=== PATIENT | male | born 1965 | race Caucasian/White ===

== ENCOUNTER 2017-03-02 20:41 | Emergency (ER) | payer OTHER ==
[~2017-03-02] VITALS: Ht 172.7 cm; Wt 76.0 kg
[~2017-03-02 20:41] MED LIST: Z.0.NO CURRENT MEDS
[2017-03-02 20:42] VITALS: BP 135/80; PULSE 100; RESP 16; TEMP 98.2; O2SAT 97
[2017-03-02] MEDS ORDERED: ROBA750T PO (21:59)
[2017-03-02] MEDS ORDERED: PRED-503 PO (21:59)
[2017-03-02] MEDS ORDERED: ULTR50TA5 PO (21:59)
[2017-03-02] MEDS ORDERED: DEXAMETHASONE SOD PHOS 20 MG/5 ML VIAL IM ONE (22:00)
[2017-03-02] MEDS ORDERED: NALBUPHINE HCL 20 MG/ML AMP IM ONE (22:00)
[2017-03-02] MEDS ORDERED: ORPHENADRINE INJ 60 MG/2 ML AMP IM ONE (22:00)
--- NOTE | 2017-03-02 22:03 | PD ---
HPI Chief Complaint: Back/ Neck Pain or Injury Time Seen by Provider: 21:59 Travel History International Travel<30 days: No Contact w/Intl Traveler<30days: No Traveled to known affect area: No History of Present Illness HPI 52-year-old white male presents to emergency department with complains of exacerbation of chronic back pain. He states that he just came down to move in with [place] sister this [place]. He states that he has chronic back pain. Over last 2 days he has had worsening pain with radiation into his left leg. This is something that he is had an the past. He states that he has tingling and decreased sensation in his heel and the back of his calf. He had a L4-5 lumbar discectomy in the past. He is disabled with chronic back pain and bipolar. He denies any trauma. He denies any bending or lifting. He denies any recent illness. Pain is moderate. Worse with bending and movement. Some relief remaining still. He denies any acute bowel or bladder changes. PFSH Past Medical History Narrative Medical Chronic back pain, bipolar, hypertension Arthritis: No Asthma: No Autoimmune Disease: No Blood Disorders: No Bipolar Disorder: Yes Anxiety: No Depression: No Heart Rhythm Problems: No Cancer: No Cardiac Catheterization: Yes Cardiovascular Problems: Yes (CAD, HTN) High Cholesterol: No Chemotherapy: No Chest Pain: Yes Congestive Heart Failure: No COPD: No Cerebrovascular Accident: No Diabetes: No Diminished Hearing: No Endocrine: No Gastrointestinal Disorders: No GERD: No Glaucoma: No Genitourinary: No Headaches: No Hepatitis: Yes (HEP C) Hiatal Hernia: No Heparin Induced Thrombocytopen: No Hypertension: No Immune Disorder: No Implanted Vascular Access Dvce: No Kidney Stones: No Musculoskeletal: No Neurologic: No Psychiatric: No Reproductive: No Respiratory: No Immunizations Current: Yes Migraines: No Myocardial Infarction: Yes Radiation Therapy: No Renal Failure: No Seizures: No Sickle Cell Disease: No Sleep Apnea: No Thyroid Disease: No Ulcer: No Tetanus Vaccination: > 5 Years Influenza Vaccination: No Past Surgical History Abdominal Surgery: No AICD: No Appendectomy: No Arteriovenous Shunt: No Cardiac Surgery: No Cholecystectomy: No Coronary Artery Bypass Graft: No Ear Surgery: No Endocrine Surgery: No Eye Surgery: No Genitourinary Surgery: No Gynecologic Surgery: No Insulin Pump: No Joint Replacement: No Neurologic Surgery: No Oral Surgery: No Pacemaker: No Thoracic Surgery: No Other Surgery: No Family History Family Myocardial Infarction: Yes (MOM) Social History Alcohol Use: No Tobacco Use: No Substance Use: No Allergies-Medications (Allergen,Severity, Reaction): Coded Allergies: Acetaminophen (Verified Allergy, Severe, HIVES, 03/02/17) Aspirin (Verified Allergy, Severe, HIVES, 03/02/17) Vicodin (Verified Allergy, Severe, HIVES, 03/02/17) Reported Meds & Prescriptions Reported Meds & Active Scripts Active Ultram (Tramadol HCl) 50 Mg Tab 50-100 Mg PO Q6H PRN Robaxin (Methocarbamol) 750 Mg Tab 1,500 Mg PO TID 7 Days Deltasone (Prednisone) 20 Mg Tab 20 Mg PO BID Review of Systems Except as stated in HPI: all other systems reviewed are Neg Physical Exam Narrative GENERAL: This is a well-nourished, well-developed patient, in no apparent distress. SKIN: No rashes, ecchymoses or lesions. Warm and dry. HEAD: Atraumatic. Normocephalic. EYES: PERRL, EOMI, no discharge or injection. No scleral icterus. EARS: Clear NOSE: Nasal turbinates appear normal. THROAT: Mucosa pink and moist. Airway patent. NECK: Trachea midline. supple, moves head freely. LUNGS: Clear to auscultation. CV: Regular in rhythm. ABDOMEN: Soft nontender. EXT: No clubbing cyanosis or edema. Back: Patient complains of lower lumbar tenderness across the paraspinal muscles into the left buttocks. Positive straight leg raise on the left at 70 . Patient has intact gross sensation but states that the sensation in his left calf does not feel right. He has no saddle anesthesia. Patient is able to heel and toe stand with encouragement. Mild spasm. No focal point bony tenderness in the lumbar spine. Data Data Last Documented VS Vital Signs Date Time Temp Pulse Resp B/P Pulse Ox O2 Delivery O2 Flow Rate FiO2 03/02/17 20:42 98.2 100 16 135/80 97 Room Air Orders Dexamethasone Inj (Decadron Inj) (03/02/17 22:00) Orphenadrine Inj (Norflex Inj) (03/02/17 22:00) Nalbuphine Inj (Nubain Inj) (03/02/17 22:00) MDM Medical Decision Making Medical Screen Exam Complete: Yes Emergency Medical Condition: Yes Medical Record Reviewed: Yes Differential Diagnosis MDM: High Differential diagnoses: AAA,Fracture, sprain, strain, HNP, nerve or vascular injury, epidural abscess, pilonidal cyst, pyelonephritis, UTI, nephrolithiasis, ureterolithiasis Narrative Course This is acute exacerbation of chronic back pain with sciatica. Patient has allergies to aspirin, acetaminophen and Vicodin. The patient will be given Nubain 10 mg IM, echo drawn 10 mg IM, and Norflex 60 mg IM Diagnosis Primary Impression: acute exacerbation of chronic back pain with sciatica Patient Instructions: Narcotic given in the ED, General Instructions Additional Instructions: Rest. Ice for the next 3 days followed by heat . Ultram, Robaxin, and prednisone. Follow-up with a primary care doctor in one week. Return to the ER for emergencies. Med/Other Pt SpecificInfo: Prescription(s) given Scripts Tramadol (Ultram)50 Mg [id number] Mg PO Q6H PRN (PAIN) #20 TAB Prov:Fitz Hdz MD 03/02/17 Methocarbamol (Robaxin)750 Mg Tab1,500 Mg PO TID 7 Days Prov:Fitz Hdz MD 03/02/17 Prednisone (Deltasone)20 Mg Tab20 Mg PO BID #14 TAB Prov:Fitz Hdz MD 03/02/17 Disposition: 01 DISCHARGE HOME Condition: Stable Cy Jaeger March 02, 2017 22:03
== END 2017-03-02 23:41 | disposition home or self-care (01) ==
LOC: NEPD 20:41
DX: M54.32 Sciatica, left side (principal); G89.29 Other chronic pain
CPT/HCPCS: 96372; 99283; J1100; J2300; J2360

== ENCOUNTER 2017-03-16 17:10 | Observation (INO) | payer OTHER ==
[2017-03-16] VITALS (7 sets, daily range): BP systolic 119–167; BP diastolic 74–92; PULSE 57–91; RESP 18–21; TEMP 97.8–98.8; O2SAT 97–100
[~2017-03-16] VITALS: Ht 172.7 cm; Wt 70.0 kg
[~2017-03-16 17:10] MED LIST changes: +PRED-503 PO; +ROBA750T PO; +ULTR50TA5 PO; -Z.0.NO CURRENT MEDS
[2017-03-16] MEDS ORDERED: ASPI1TAB69 PO (17:31)
[2017-03-16] MEDS ORDERED: SERO100T PO (17:31)
[2017-03-16] MEDS ORDERED: SODIUM CHLORIDE 0.9% FLUSH 10 ML FLUSH IVF PRN (17:45)
[2017-03-16] MEDS ORDERED: NITROGLYCERIN 2% OINT 1 GM PACKET TOP ONE (17:45)
[2017-03-16] MEDS ORDERED: ASPIRIN 81 MG CHEW TAB PO ONE (17:45)
--- NOTE | 2017-03-16 17:47 | PD ---
HPI Chief Complaint: Chest Pain Time Seen by Provider: 17:43 Travel History International Travel<30 days: No Contact w/Intl Traveler<30days: No Traveled to known affect area: No History of Present Illness HPI Patient comes in complaining of left-sided chest pain describes as pressure- like in nature began approximately 2 hours prior to arrival. Patient states this feels similar to previous chest pain that he has had. Patient states that he does take a baby aspirin daily took that today. Patient tried taking 3 doses of nitroglycerin with no improvement of his symptoms. Patient reports that a month ago when he had similar chest pain nitroglycerin relieved his symptoms. Patient states he just recently moved from [place] about a month ago via [facility] and does not have a member service specialist here locally. Patient states he was watching a Gio movie when the chest pain started. Patient reports his last stress test was several years ago and his last cardiac catheter was more than 10 years ago. Patient states he has had a heart attack in the past as well as a history of hepatitis C. Patient denies anything making the pain worse. Denies any headache, numbness tingling or callback pain , diaphoresis, nausea, vomiting, or neck pain. Patient states that he is uncertain why they have him being allergic to acetaminophen and Vicodin as he has no known drug allergies. PFSH Past Medical History Hx Anticoagulant Therapy: Yes Arthritis: No Asthma: No Autoimmune Disease: No Blood Disorders: No Bipolar Disorder: Yes Anxiety: No Depression: No Heart Rhythm Problems: No Cancer: No Cardiac Catheterization: Yes Cardiovascular Problems: Yes High Cholesterol: No Chemotherapy: No Chest Pain: Yes Congestive Heart Failure: No COPD: No Cerebrovascular Accident: No Diabetes: No Diminished Hearing: No Endocrine: No Gastrointestinal Disorders: No GERD: No Glaucoma: No Genitourinary: No Headaches: No Hepatitis: Yes (HEP C) Hiatal Hernia: No Heparin Induced Thrombocytopen: No Hypertension: No Immune Disorder: No Implanted Vascular Access Dvce: No Kidney Stones: No Musculoskeletal: No Neurologic: No Psychiatric: No Reproductive: No Respiratory: No Immunizations Current: Yes Migraines: No Myocardial Infarction: Yes Radiation Therapy: No Renal Failure: No Seizures: No Sickle Cell Disease: No Sleep Apnea: No Thyroid Disease: No Ulcer: No Tetanus Vaccination: < 5 Years Influenza Vaccination: No Past Surgical History Abdominal Surgery: No AICD: No Appendectomy: No Arteriovenous Shunt: No Cardiac Surgery: No Cholecystectomy: No Coronary Artery Bypass Graft: No Ear Surgery: No Endocrine Surgery: No Eye Surgery: No Genitourinary Surgery: No Gynecologic Surgery: No Insulin Pump: No Joint Replacement: No Neurologic Surgery: No Oral Surgery: No Pacemaker: No Thoracic Surgery: No Other Surgery: No Family History Family Myocardial Infarction: Yes (MOM) Social History Alcohol Use: No Tobacco Use: Yes Substance Use: No Allergies-Medications (Allergen,Severity, Reaction): Coded Allergies: Acetaminophen (Verified Allergy, Severe, HIVES, 03/16/17) Vicodin (Verified Allergy, Severe, HIVES, 03/16/17) Reported Meds & Prescriptions Reported Meds & Active Scripts Active Reported Seroquel (Quetiapine Fumarate) 100 Mg Tab 100 Mg PO DAILY Aspirin 81 Mg Tabdr 81 Mg PO DAILY Review of Systems Except as stated in HPI: all other systems reviewed are Neg Physical Exam Narrative GENERAL: Well-developed, well nourished, in no acute distress, and non-ill appearing. SKIN: Focused skin assessment warm and dry. HEAD: Atraumatic. Normocephalic. EYES: Pupils equal and round. EOMI. No scleral icterus. No injection or drainage. ENT: No nasal bleeding or discharge. Mucous membranes pink and moist. NECK: Trachea midline. No JVD. Supple. No nuclear rigidity. CARDIOVASCULAR: Regular rate and rhythm. No murmur appreciated. RESPIRATORY: No accessory muscle use. No respiratory distress. Clear to auscultation. Breath sounds equal bilaterally. GASTROINTESTINAL: Abdomen soft, non-tender, nondistended. Hepatic and splenic margins not palpable. No pulsatile mass. MUSCULOSKELETAL: No obvious deformities. No clubbing. No cyanosis. No edema. Full range of motion. NEUROLOGICAL: Awake and alert. No obvious cranial nerve deficits. Motor grossly within normal limits. Normal speech. PSYCHIATRIC: Appropriate mood and affect; insight and judgment normal. Data Data Last Documented VS Vital Signs Date Time Temp Pulse Resp B/P Pulse Ox O2 Delivery O2 Flow Rate FiO2 03/16/17 19:30 65 21 122/74 97 Room Air 03/16/17 17:21 98.0 Orders Electrocardiogram (03/16/17 ) Basic Metabolic Panel (Bmp) (03/16/17 17:41) Ckmb (Isoenzyme) Profile (03/16/17 17:41) Complete Blood Count With Diff (03/16/17:41) D-Dimer (03/16/17 17:41) Magnesium (Mg) (03/16/17:41) Prothrombin Time / Inr (Pt) (03/16/17:41) Act Partial Throm Time (Ptt) (03/16/17:41) Troponin I (03/16/17:41) Chest, Single Ap (03/16/17:41) Ecg Monitoring (03/16/17:) Bilateral Bp Monitoring (03/16/17:) Iv Access Insert/Monitor (03/16/17:) Oximetry (03/16/17:41) Oxygen Administration (03/16/17:) Aspirin Chew (Aspirin Chew) (03/16/17:45) Nitroglycerin 2% Oint (Nitroglycerin 2% (03/16/17:45) Sodium Chloride 0.9% Flush (Ns Flush) (03/16/17:45) Ondansetron Inj (Zofran Inj) (03/16/17 19:30) Morphine Inj (Morphine Inj) (03/16/17 19:30) CKMB (03/16/17 18:00) CKMB% (03/16/17 18:00) Admit Order (Ed Use Only) (03/16/17:25) Activity Bed Rest With Brp (03/16/17:25) Vital Signs (Adult) Q4H (03/16/17:25) Cardiac Rhythm .As Directed (03/16/17:25) Notify Dr: Other .PRN (03/16/17 19:25) Notify Dr. Parameters (03/16/17:25) Resp Oxygen Nasal Cannula (03/16/17 ) Ckmb (Isoenzyme) Profile (03/16/17 21:00) Ckmb (Isoenzyme) Profile (03/17/17 00:00) Troponin I (03/16/17 21:00) Troponin I (03/17/17 00:00) Electrocardiogram (03/16/17 21:00) Electrocardiogram (03/17/17 00:00) ^ Obtain (03/16/17:25) Sodium Chloride 0.9% Flush (Ns Flush) (5/20/17 19:30) Sodium Chloride 0.9% Flush (Ns Flush) (03/16/17 21:00) Barrel Loader And Cleaner / Telemetry MITCHELL.Q8H (03/16/17 19:25) Labs Laboratory Tests Test 03/16/17 18:00 White Blood Count 9.2 TH/MM3 Red Blood Count 4.85 MIL/MM3 Hemoglobin 15.8 GM/DL Hematocrit 45.8 % Mean Corpuscular Volume 94.5 FL Mean Corpuscular Hemoglobin 32.5 PG Mean Corpuscular Hemoglobin 34.4 % Concent Red Cell Distribution Width 13.4 % Platelet Count 192 TH/MM3 Mean Platelet Volume 8.2 FL Neutrophils (%) (Auto) 65.3 % Lymphocytes (%) (Auto) 23.2 % Monocytes (%) (Auto) 8.3 % Eosinophils (%) (Auto) 2.3 % Basophils (%) (Auto) 0.9 % Neutrophils # (Auto) 6.0 TH/MM3 Lymphocytes # (Auto) 2.1 TH/MM3 Monocytes # (Auto) 0.8 TH/MM3 Eosinophils # (Auto) 0.2 TH/MM3 Basophils # (Auto) 0.1 TH/MM3 CBC Comment DIFF FINAL Differential Comment Prothrombin Time 10.6 SEC Prothromb Time International 1.0 RATIO Ratio Activated Partial 30.3 SEC Thromboplast Time D-Dimer Quantitative (PE/DVT) 0.20 MG/L FEU Sodium Level 140 MEQ/L Potassium Level 3.7 MEQ/L Chloride Level 104 MEQ/L Carbon Dioxide Level 26.5 MEQ/L Anion Gap 10 MEQ/L Blood Urea Nitrogen 17 MG/DL Creatinine 1.07 MG/DL Estimat Glomerular Filtration 73 ML/MIN Rate Random Glucose 82 MG/DL Calcium Level 8.7 MG/DL Magnesium Level 2.1 MG/DL Total Creatine Kinase 154 U/L Troponin I LESS THAN 0.02 NG/ML MDM Medical Decision Making Medical Screen Exam Complete: Yes Emergency Medical Condition: Yes Interpretation(s) EKG reviewed by Dr. Donahue shows sinus rhythm with ventricular rate of 79. No STEMI. Chest x-ray read by the radiologist shows: No acute disease. Differential Diagnosis Acute coronary syndrome, atypical chest pain, PE, pneumonia, electrolyte abnormality, pneumothorax, other Narrative Course Patient was seen and examined. IV was established. 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 Patient was given aspirin and Nitropaste. Labs were obtained and reviewed. EKG is obtained and reviewed. Chest x-ray was obtained and reviewed. Patient reassessed and continuing complaining of chest pain. Patient was given a dose of morphine and Zofran. Discussed all findings and plan of care with patient, who was agreeable for admission. All questions were answered. Patient remained stable throughout ED course. Discussed patient with Dr. Donahue, who saw and evaluated the patient and is in agreement with plan of care disposition. Diagnosis Primary Impression: Chest pain Qualified Code: R07.9 - Chest pain, unspecified type Admitting Information Admitting Physician Requests: Observation Condition: Stable Leo Johnson March 16, 2017 17:47
--- NOTE | 2017-03-16 18:24 | RADRPT ---
EXAM DATE/TIME: 03/16/2017 17:43 [facility] COMPARISON: No previous studies available for comparison. INDICATIONS : Chest pain, shortness of breath, cough, and dizziness. MEDICAL HISTORY : None. SURGICAL HISTORY : None. ENCOUNTER: Initial ACUITY: 1 day PAIN SCORE: 7/10 LOCATION: Left chest FINDINGS: A single view of the chest demonstrates the lungs to be symmetrically aerated without evidence of mas s, infiltrate or effusion. The cardiomediastinal contours are unremarkable. Osseous structures are intact. CONCLUSION: No acute disease. Betito Pickering MD on March 16, 2017 at 18:22 Board Certified Radiologist. This report was verified electronically.
[2017-03-16 18:40] LABS: BASOPHIL # 0.1 TH/MM3 (0-0.2); BASOPHIL % 0.9 % (0.0-2.0); EOSINOPHIL # 0.2 TH/MM3 (0-0.4); EOSINOPHIL % 2.3 % (0.0-4.0); HEMATOCRIT 45.8 % (39.0-51.0); HEMO FLAGS DIFF FINAL; LYMPH % 23.2 % (9.0-44.0); LYMPHOCYTE # 2.1 TH/MM3 (1.0-4.8); MEAN CELL VOLUME 94.5 FL (80.0-100.0); MEAN CORPUSCULAR HEMOGLOBIN 32.5 PG (27.0-34.0); MEAN CORPUSCULAR HGB CONC 34.4 % (32.0-36.0); MONO % 8.3 % (0.0-8.0); NEUT % 65.3 % (16.0-70.0); PLATELET COUNT 192 TH/MM3 (150-450); RED BLOOD COUNT 4.85 MIL/MM3 (4.50-5.90); RED CELL DISTRIBUTION WIDTH 13.4 % (11.6-17.2); WHITE BLOOD COUNT 9.2 TH/MM3 (4.0-11.0)
[2017-03-16 19:01] LABS: APTT (PATIENT) 30.3 SEC (24.3-30.1); PROTHROMBIN TIME - PATIENT 10.6 SEC (9.8-11.6)
[2017-03-16 19:15] LABS: ANION GAP 10 MEQ/L (5-15); BICARBONATE 26.5 MEQ/L (21.0-32.0); BLOOD UREA NITROGEN 17 MG/DL (7-18); CHLORIDE 104 MEQ/L (98-107); GLOMERULAR FILTRATION RATE 73 ML/MIN (>89); MAGNESIUM 2.1 MG/DL (1.5-2.5); POTASSIUM 3.7 MEQ/L (3.5-5.1); SODIUM (NA) 140 MEQ/L (136-145)
[2017-03-16 19:19] LABS: CREATINE KINASE 154 U/L (39-308)
[2017-03-16] MEDS ORDERED: MORPHINE SULFATE 4 MG/ML INJ IV PUSH ONE (19:30)
[2017-03-16] MEDS ORDERED: ONDANSETRON HCL 4 MG/2 ML VIAL IV PUSH ONE (19:30)
[2017-03-16] MEDS ORDERED: SODIUM CHLORIDE 0.9% FLUSH 10 ML FLUSH IV FLUSH PRN (19:30)
[2017-03-16 19:31] LABS: CKMB 4.3 NG/ML (0.5-3.6)
[2017-03-16 22:02] LABS: CREATINE KINASE 122 U/L (39-308)
[2017-03-16 22:14] LABS: CKMB 3.6 NG/ML (0.5-3.6)
[2017-03-16] MEDS: MORPHINE SULFATE 4 MG/ML INJ IV PRN (23:37)
[2017-03-16] MEDS ORDERED: traMADol HCL 50 MG TAB PO PRN (23:45)
[2017-03-17] VITALS (10 sets, daily range): BP systolic 91–116; BP diastolic 50–73; PULSE 54–68; RESP 16–18; TEMP 96.5–98.4; O2SAT 94–99
[2017-03-17] MEDS: SODIUM CHLORIDE 0.9% FLUSH 10 ML FLUSH IV FLUSH SCH ×3 (00:08→20:39)
[2017-03-17 01:07] LABS: CREATINE KINASE 103 U/L (39-308)
[2017-03-17 01:19] LABS: CKMB 2.9 NG/ML (0.5-3.6)
[2017-03-17] MEDS: MORPHINE SULFATE 4 MG/ML INJ IV PRN ×2 (03:05→08:48)
[2017-03-17] MEDS ORDERED: NITROGLYCERIN 0.4 MG SL 25 TABS/BTL SL PRN (08:00)
[2017-03-17] MEDS ORDERED: ONDANSETRON HCL 4 MG/2 ML VIAL IV PRN (08:00)
[2017-03-17] MEDS ORDERED: ASPIRIN 325 MG TAB PO SCH (09:00)
--- NOTE | 2017-03-17 10:20 | HHI.HP ---
HPI Primary Care Physician No Primary Care Physician Chief Complaint Chest pain History of Present Illness 52-year-old male with history of hepatitis C, bipolar, history of coronary artery disease presents to emergency room for further evaluation of chest pain. Onset yesterday of 4 PM. Location substernal. Described as pressure and tightness. No radiation of pain. No known precipitating factors. Took 3 nitroglycerin tablets within 20 minutes timeframe with no relief. His sister encouraged him to come to the emergency room for further evaluation. Associated symptoms included dizziness. Denied nausea, diaphoresis, or vomiting. Pain has been constant, waxing and waning in intensity. Position, movement, or breathing does not make pain better or worse. Endorses cardiac catheterization completed over 10 years ago. Per his record sounds as though he had a non-STEMI, stating "my EKGs were normal but my blood work were elevated." States he took heart Meds and cholesterol medications for "a little while but quit taking them because I felt fine." Review of Systems General: No fatigue,weakness, fever, chills, recent illness, or change in appetite. Recently moved here from [place] and is staying with his sister. States he has been in his general state of health. HEENT: No HURLEY, no vision changes, no nasal congestion or drainage, no dysphasia. CV: As stated above. Continues to have constant waxing and waning chest pressure. Endorses occasional palpitations. Denies intermittent leg pain or dizziness. RESP: No SOB, cough, wheeze, hemoptysis, asthma, or recent URI. GI: No nausea, vomiting, bowel changes, diarrhea, constipation, pain, distention , melena, blood in the stool. No unintentional weight gain or weight loss. Endorses hemorrhoids. : No dysuria, urgency, frequency. EXT: No lower leg edema, no paraesthesias MS: No discomfort or change in ROM. Ambulates independently. NEURO: No change in memory, dizziness, difficulty with balance, LOC, motor/ sensory deficits. PSYCH: History of bipolar disorder, stating he takes his Seroquel "when I need it." Denies any current anxiety, depression, mood swings, or suicidal ideation. SKIN: No rashes, no concerning lesions Past Family Social History Allergies: Coded Allergies: Acetaminophen (Verified Allergy, Severe, HIVES, 03/16/17) Vicodin (Verified Allergy, Severe, HIVES, 03/16/17) Past Medical History Hepatitis C, bipolar, coronary artery disease Past Surgical History Back [id number] Reported Medications Active Reported Seroquel (Quetiapine Fumarate) 100 Mg Tab 100 Mg PO DAILY Aspirin 81 Mg Tab 81 Mg PO DAILY Active Ordered Medications Current Medications Medications (Trade) Dose Ordered Sig/Joan Route Start Time Stop Time Status Last Admin (Morphine Inj) 2 mg Q2H PRN IV 03/16/17 23:30 03/17/17 08:48 (Ultram) 50 mg Q6H PRN PO 03/16/17 23:45 03/17/17 00:07 (Zofran Inj) 4 mg Q6H PRN IV 03/17/17 08:00 (Nitrostat Sl) 0.4 mg Q5M PRN SL 03/17/17 08:00 (Aspirin) 325 mg DAILY PO 03/17/17 09:00 03/17/17 08:37 Family History Father at age 37 from myocardial infarction. Mother myocardial infarction at age 28. No siblings with early onset cardiovascular disease. Social History No known diabetes, hypertension, or hyperlipidemia. Smokes half pack daily since age 15. Denies any alcohol or illegal drug use. States he is active and states "dizzy." Currently living with his sister, he is unemployed. Past cardiac testing 03/10/09-[facility] scannegative for reversibility to suggest ischemia. Ejection fraction 51%. Fixed diminished perfusion to inferolateral wall and low anterior septal wall could represent old areas of infarct. 10 + years ago endorses cardiac catheterization performed in [place]. No intervention or cardiac catheterization. Was told he had blockages. Physical Exam Vital Signs Vital Signs Date Time Temp Pulse Resp B/P Pulse Ox O2 Delivery O2 Flow Rate FiO2 03/17/17 08:24 97.8 68 18 95 03/17/17 08:24 96.8 68 18 104/69 96 03/17/17 07:35 67 03/17/17 04:23 54 03/17/17 04:04 16 03/17/17 03:03 96.5 62 16 116/73 94 03/17/17 01:11 18 03/17/17 00:42 98.4 58 18 91/51 97 03/16/17 21:27 57 03/16/17 20:25 98.8 91 18 119/81 98 03/16/17 19:30 65 21 122/74 97 Room Air 03/16/17 18:34 79 20 167/92 98 Room Air 03/16/17 18:31 18 98 Room Air 03/16/17 18:31 98 Room Air 03/16/17 17:27 83 18 98 Room Air 03/16/17 17:21 98.0 82 20 126/91 98 03/16/17 17:12 97.8 90 20 143/89 100 Room Air Physical Exam GENERAL: Alert WN, WD, NAD, anxious, thin male HEAD: NC, AT EYES: Sclera clear, conjunctiva without injection, pupils equal and round ENT: Mucous membranes pink and moist, no nasal discharge or bleeding NECK: Supple, no masses, trachea midline CV: RRR, without murmur, rub, gallop, no JVD, S1-S2 no S3-S4. No carotid or femoral bruits. RESP: Clear lungs throughout bilateral, no crackles, wheeze, rhonchi, symmetrical chest rise, nonlabored, able to speak in full sentences ABD: Soft, NT, ND, no masses, positive bowel tones BACK: No CVAT, no scoliosis EXT: Pulses +24, no dependent edema MS: Normal tone 4 extremities, nontender, no obvious deformities, full range of motion NEURO: CN II through CN XII grossly intact, motor strength 5/5, gait WNL PSYCH: A+O 3, appropriate speech, mildly anxious, appropriate affect, insight and judgment SKIN: Normal turgor, normal texture, no lesions, no rashes, brisk cap refill, even hair distribution Laboratory Laboratory Tests Test 03/16/17 03/16/17 03/17/17 18:00 21:00 00:00 White Blood Count 9.2 Red Blood Count 4.85 Hemoglobin 15.8 Hematocrit 45.8 Mean Corpuscular Volume 94.5 Mean Corpuscular Hemoglobin 32.5 Mean Corpuscular Hemoglobin 34.4 Concent Red Cell Distribution Width 13.4 Platelet Count 192 Mean Platelet Volume 8.2 Neutrophils (%) (Auto) 65.3 Lymphocytes (%) (Auto) 23.2 Monocytes (%) (Auto) 8.3 Eosinophils (%) (Auto) 2.3 Basophils (%) (Auto) 0.9 Neutrophils # (Auto) 6.0 Lymphocytes # (Auto) 2.1 Monocytes # (Auto) 0.8 Eosinophils # (Auto) 0.2 Basophils # (Auto) 0.1 CBC Comment DIFF FINAL Differential Comment Prothrombin Time 10.6 Prothromb Time International 1.0 Ratio Activated Partial 30.3 Thromboplast Time D-Dimer Quantitative (PE/DVT) 0.20 Sodium Level 140 Potassium Level 3.7 Chloride Level 104 Carbon Dioxide Level 26.5 Anion Gap 10 Blood Urea Nitrogen 17 Creatinine 1.07 Estimat Glomerular Filtration 73 Rate Random Glucose 82 Calcium Level 8.7 Magnesium Level 2.1 Total Creatine Kinase 154 122 103 Creatine Kinase MB 4.3 3.6 2.9 Troponin I LESS THAN 0.02 LESS THAN 0.02 LESS THAN 0.02 Result Diagram: 03/16/17 1800 03/16/17 1800 Imaging Last Impressions Myocardial Perfusion Scan Nuc Med 03/17/17 0000 Signed Impressions: Service Date/Time: Friday, March 17, 2017 10:41 - CONCLUSION: 1. Reversible perfusion defect anterior wall suggesting stress-induced myocardial ischemia. 2. Normal ejection fraction. RISK CATEGORY: Intermediate (1-3%% Annual Mortality Rate) [place] MD Chest X-Ray 03/16/17 1741 Signed Impressions: Service Date/Time: Thursday, March 16, 2017 17:43 - CONCLUSION: No acute disease. Betito Pickering MD Course EKGs Normal sinus rhythm, normal axis, with no ST or T-segment changes Assessment and Plan Assessment and Plan #1 Chest painthe chest pain center. Ruled out with 3 sets of EKGs, cardiac enzymes, and monitored overnight. Seen and evaluated by Dr. Louie Mon. Chest discomfort most likely musculoskeletal in nature however due to past coronary artery disease, full risk factors, and no recent cardiac testing chemical stress test ordered. Patient states he cannot walk on treadmill due to chronic back pain. #2 Tobacco usediscussed and counseled on the effects of tobacco. Encouraged patient to quit smoking. #3 Bipolarcontinue Seroquel. Encouraged patient to take medication daily as directed #4 History of coronary artery diseasecontinue aspirin. Discussed importance of preventative cardiac medications including but not limited to beta blockers and cholesterol medication. Encouraged to reestablish with a outside sales engineer and keep all scheduled appointments. 13:55-return call from Dr. Andrea received. Correction Officer Head made aware of nitroglycerin, beta nidia, and aspirin ordered. Dr. Andrea plans for cardiac catheterization in am. Dr. Mon discussed results and plan of care with patient in length. Aida Toribio March 17, 2017 10:20
[2017-03-17] MEDS ORDERED: QUEtiapine FUMARATE 100 MG TAB PO SCH (10:30)
[2017-03-17] MEDS ORDERED: REGADENOSON INJ 0.4 MG/5 ML SYR ONE (10:44)
--- NOTE | 2017-03-17 12:46 | RADRPT ---
EXAM DATE/TIME: 03/17/2017 10:41 [facility] COMPARISON: No previous studies available for comparison. INDICATIONS : Left sided chest pain without radiation. Angina. Myocardial infarction. DOSE: 26.1 mCi Tc99m Myoview at stress. 8.5 mCi Tc99m Myoview at rest. 0.4 mg Lexiscan STRESS SYMPTOMS: Dyspnea and heart racing. EJECTION FRACTION: 50% MEDICAL HISTORY : Hepatitis C. SURGICAL HISTORY : None. ENCOUNTER: Initial ACUITY: 1 day PAIN SCALE: 6/10 LOCATION: Left chest TECHNIQUE: The patient underwent pharmacologic stress with infusion of prescribed dose. Continuous ECG tracing was monitored during stress. Gated SPECT imaging was performed after stress and conventional SPECT i maging was performed at rest. The examination was performed on a SPECT/CT scanner, both attenuation and non-corrected datasets were reviewed. The study is limited by motion artifact. FINDINGS: DISTRIBUTION: The maximum perfused segment at stress is in the inferior wall. PERFUSION STUDY: There is a moderate reversible perfusion defect suspected at the anterior wall suspected. GATED STUDY: There is intact wall motion and thickening without hypokinetic or dyskinetic segments. CONCLUSION: 1. Reversible perfusion defect anterior wall suggesting stress-induced myocardial ischemia. 2. Normal ejection fraction. RISK CATEGORY: Intermediate (1-3% Annual Mortality Rate) Chi Spring MD on March 17, 2017 at 12:42 Board Certified Radiologist. This report was verified electronically.
[2017-03-17] MEDS: NITROGLYCERIN 2% OINT 1 GM PACKET TOPICAL SCH ×2 (13:00→18:00)
[2017-03-17] MEDS: METOPROLOL TARTRATE 25 MG TAB PO SCH ×2 (13:00→20:39)
--- NOTE | 2017-03-17 14:40 | TR ---
Date Performed: 03/17/2017 Time Performed: 11:02:34 DOCTOR: Louie Mon DRUG LIST: CLINICAL HISTORY: CHEST PAIN REASON FOR TEST: CHEST PAIN REASON FOR ENDING: OBSERVATION: CONCLUSION: Lexiscan stress test was performed under standard four minute protocol. Radionuclid e was injected one minute prior to ending the test. No electrocardiographic abormalities were present to suggest ischemia. Nuclear imaging and interpretation are pending. COMMENTS:
--- NOTE | 2017-03-17 14:45 | EKG ---
Date Performed: 03/16/2017 Time Performed: 23:42:51 PTAGE: 52 years EKG: Sinus rhythm WITH SINUS ARRHYTHMIA NORMAL ECG PREVIOUS TRACING : 03/16/2017 21.13 Since previous tracing, no significant change noted DOCTOR: Louie Mon Interpretating Date/Time 03/17/2017 14:44:38
--- NOTE | 2017-03-17 14:46 | EKG ---
Date Performed: 03/16/2017 Time Performed: 17:23:27 PTAGE: 52 years EKG: Sinus rhythm NORMAL ECG PREVIOUS TRACING : 03/27/2009 23.01 DOCTOR: Louie Mon Interpretating Date/Time 03/17/2017 14:46:09
--- NOTE | 2017-03-17 14:46 | EKG ---
Date Performed: 03/16/2017 Time Performed: 21:13:36 PTAGE: 52 years EKG: SINUS BRADYCARDIA WITH SINUS ARRHYTHMIA BORDERLINE ECG PREVIOUS TRACING : 03/16/2017 17.23 Since previous tracing, no significant change noted DOCTOR: Louie Mon Interpretating Date/Time 03/17/2017 14:44:53
[2017-03-18 00:15] VITALS: PULSE 66
[2017-03-18 04:21] VITALS: BP 100/62; PULSE 49; RESP 18; TEMP 97.9; O2SAT 98
[2017-03-18] MEDS: NITROGLYCERIN 2% OINT 1 GM PACKET TOPICAL SCH ×2 (05:46)
[2017-03-18 07:39] VITALS: BP 108/65; PULSE 61; RESP 18; TEMP 98; O2SAT 98
--- NOTE | 2017-03-18 08:15 | HHI.PR ---
Subjective Remarks Follow up for chest pain with abnormal Lexiscan. The patient is very disgruntled this morning. Upon me entering the room he says "Oh God, now what?" and repetitively cuts me off throughout conversation. He reports continued chest pain throughout the night, located substernally, described as intermittent pressure/tightness, denies any associated shortness of breath, diaphoresis, nausea/vomiting. He agrees to cardiac catheterization today. He has no other medical complaints at this time. Objective Vitals Vital Signs Date Time Temp Pulse Resp B/P Pulse Ox O2 Delivery O2 Flow Rate FiO2 03/18/17 07:39 98.0 61 18 108/65 98 03/18/17 06:51 21 03/18/17 04:21 97.9 49 18 100/62 98 03/18/17 00:15 66 03/18/17 00:15 66 03/17/17 23:46 57 18 101/65 99 03/17/17 19:24 98.4 56 18 97/52 96 03/17/17 17:27 97.5 60 18 99/50 95 03/17/17 15:07 54 03/17/17 14:00 94/55 03/17/17 08:24 97.8 68 18 95 03/17/17 08:24 96.8 68 18 104/69 96 I/O 03/17/17 03/17/17 03/17/17 03/18/17 03/18/17 03/18/17 07:00 15:00 23:00 07:00 15:00 23:00 Intake Total 480 ml Output Total 300 ml Balance -300 ml 480 ml Intake Oral 480 ml Output Urine Total 300 ml # Voids 4 2 Result Diagram: 03/16/17 1800 03/16/17 1800 Imaging Last Impressions Myocardial Perfusion Scan Nuc Med 03/17/17 0000 Signed Impressions: Service Date/Time: Friday, March 17, 2017 10:41 - CONCLUSION: 1. Reversible perfusion defect anterior wall suggesting stress-induced myocardial ischemia. 2. Normal ejection fraction. RISK CATEGORY: Intermediate (1-3%% Annual Mortality Rate) Chi Spring MD Chest X-Ray 03/16/17 1741 Signed Impressions: Service Date/Time: Thursday, March 16, 2017 17:43 - CONCLUSION: No acute disease. Betito Pickering MD Objective Remarks GENERAL: Well-nourished, well-developed middle aged patient in NAD. SKIN: Warm and dry. No rash. HEENT: Normocephalic. Atraumatic. Pupils equal and round. Mucous membranes pink and moist. NECK: Supple. Trachea midline. CARDIOVASCULAR: Regular rate and rhythm. S1, S2 noted. No murmur appreciated. RESPIRATORY: No accessory muscle use. Clear to auscultation. Breath sounds equal bilaterally. GASTROINTESTINAL: Abdomen soft, non-tender, nondistended. Normoactive bowel sounds x4. MUSCULOSKELETAL: No obvious deformities. Extremities without clubbing, cyanosis , or edema. NEUROLOGICAL: Awake and alert. No obvious cranial nerve deficits. Motor grossly within normal limits. Normal speech. PSYCHIATRIC: Anxious mood; insight and judgment normal. Medications and IVs Current Medications Medications (Trade) Dose Ordered Sig/Joan Route Start Time Stop Time Status Last Admin (NS Flush) 2 ml UNSCH PRN IV FLUSH 03/16/17 19:30 (NS Flush) 2 ml BID IV FLUSH 03/16/17 21:00 03/17/17 08:48 (Morphine Inj) 2 mg Q2H PRN IV 03/16/17 23:30 03/17/17 08:48 (Ultram) 50 mg Q6H PRN PO 03/16/17 23:45 03/17/17 00:07 (Zofran Inj) 4 mg Q6H PRN IV 03/17/17 08:00 (Nitrostat Sl) 0.4 mg Q5M PRN SL 03/17/17 08:00 (Aspirin) 325 mg DAILY PO 03/17/17 09:00 03/17/17 08:37 (SEROquel) 100 mg DAILY PO 03/17/17 10:30 03/17/17 14:01 (Nitroglycerin 2% Oint) 0.5 inch Q6HR TOPICAL 03/17/17 13:00 (Lopressor) 25 mg Q12HR PO 03/17/17 13:00 A/P Problem List: (1) Chest pain ICD Code: R07.9 Status: Acute Assessment and Plan 52-year-old male with history of CAD with prior NE 10years ago, hepatitis C, bipolar disorder, tobacco use, presents with a one-day history of chest pain Chest pain: Patient initially admitted to [facility], ACS ruled out with negative serial cardiac enzymes 3 and EKG without acute ST changes. Nuclear stress test showed reversible perfusion defect anterior wall suggesting stress-induced myocardial ischemia; normal ejection fraction. Continue aspirin, metoprolol, nitroglycerin ointment (although patient refused). Monitor on telemetry. Check lipid panel and hemoglobin A1c. Cardiology consulted. Plan for cardiac catheterization today. Tobacco use: Consulted on cessation. Avoid nicotine patch. Bipolar disorder: Chronic, continue patient's Seroquel. Hepatitis C: Chronic, outpatient follow-up with gastroenterology. DVT prophylaxis: Teds/SCDs Discharge Planning 0830hrs: RN reports cardiac catheterization team showed up to take the patient to prep for cath, patient refused, and demanded to be discharged. The patient is AAOx4. He immediately signed himself out AGAINST MEDICAL ADVICE. Problem Qualifiers (1) Chest pain: Qualified Code: R07.9 - Chest pain, unspecified type Lauryn Avilez PA-C March 18, 2017 08:15
[2017-03-18 17:44] LABS: HEMOGLOBIN A1a 0.7 %; HEMOGLOBIN A1b 0.7 %; HEMOGLOBIN Ao 86.5 %; HEMOGLOBIN F 0.9 %; HEMOGLOBIN LA1C 1.7 %; HEMOGLOBIN P3 3.2 %
== END 2017-03-18 10:45 | disposition left against medical advice (07) ==
LOC: NEPE 17:10 → NEDA 19:35 → NEPHCDU 20:21
PROVIDERS: ADMIT Internal Medicine; ATTEND Internal Medicine
DX: R07.89 Other chest pain (principal); F31.9 Bipolar disorder, unspecified; I25.10 Atherosclerotic heart disease of native coronary artery without angina pectoris; I25.2 Old myocardial infarction; G89.29 Other chronic pain; M54.9 Dorsalgia, unspecified; B18.2 Chronic viral hepatitis C; F17.200 Nicotine dependence, unspecified, uncomplicated; Z88.5 Allergy status to narcotic agent; Z88.8 Allergy status to other drugs, medicaments and biological substances; Z79.82 Long term (current) use of aspirin; Z79.01 Long term (current) use of anticoagulants; F17.210 Nicotine dependence, cigarettes, uncomplicated
CPT/HCPCS: 71010; 78452; 80048; 82550; 82552; 83036; 83735; 84484; 85025; 85379; 85610; 85730; 93005; 93017; 99285; A9502; G0378; J2270; J2405; J2785

== ENCOUNTER 2017-03-26 22:36 | Emergency (ER) | payer OTHER ==
[~2017-03-26] VITALS: Ht 172.7 cm; Wt 73.0 kg
[~2017-03-26 22:36] MED LIST changes: +ASPI1TAB69 PO; +SERO100T PO
[2017-03-26 22:37] VITALS: BP 140/92; PULSE 88; RESP 16; TEMP 97.8; O2SAT 97
[2017-03-26] MEDS ORDERED: ASPI81CH37 CHEW (22:47)
--- NOTE | 2017-03-26 22:51 | PD ---
Physical Exam Date Seen by Provider: March 26, 2017 Time Seen by Provider: 22:49 Narrative 52 yo male here for evaluation of fall from ladder. Hit his head on the back of the head with LOC. seeing stars per patient. No chest pain or SOB. Just had a heart cath yesterday. No problems with this. No neck or back pain. pain is 6/10. Vitals sign stable. Patient awaiting bed placement. Data Data Last Documented VS Vital Signs Date Time Temp Pulse Resp B/P Pulse Ox O2 Delivery O2 Flow Rate FiO2 03/26/17 22:37 97.8 88 16 140/92 97 Room Air [facility] Medical Record Reviewed: Yes Supervised Visit with CAROLINE: No Amrik Arndt March 26, 2017 22:50
[2017-03-26] MEDS ORDERED: diphenhydrAMINE HCL 50 MG/ML VIAL IVP ONE (23:30)
[2017-03-26] MEDS ORDERED: PROCHLORPERAZINE INJ 10 MG/2 ML VIAL IVP ONE (23:30)
[2017-03-26] MEDS ORDERED: SODIUM CHLORIDE 0.9% FLUSH 10 ML FLUSH IVF PRN (23:30)
--- NOTE | 2017-03-26 23:30 | PD ---
HPI . Head injury Chief Complaint: Fall Time Seen by Provider: 23:25 Travel History International Travel<30 days: No Contact w/Intl Traveler<30days: No Traveled to known affect area: No History of Present Illness HPI Patient presents for evaluation following a head injury. He states that he was on a step ladder hanging a picture at about 3:30 this afternoon when he fell backward striking his head on the ground. He reports a positive loss of consciousness. Since that time, he has had nausea, blurred vision, headache and dizziness. He reports no exacerbating or relieving factors. He currently rates his head pain as 7/10. PFSH Past Medical History Hx Anticoagulant Therapy: Yes Arthritis: No Asthma: No Autoimmune Disease: No Blood Disorders: No Bipolar Disorder: Yes Anxiety: No Depression: No Heart Rhythm Problems: No Cancer: No Cardiac Catheterization: Yes (X2) Cardiovascular Problems: Yes High Cholesterol: No Chemotherapy: No Chest Pain: Yes Congestive Heart Failure: No COPD: No Cerebrovascular Accident: No Diabetes: No Diminished Hearing: No Endocrine: No Gastrointestinal Disorders: No GERD: No Glaucoma: No Genitourinary: No Headaches: No Hepatitis: Yes (HEP C) Hiatal Hernia: No Heparin Induced Thrombocytopen: No Hypertension: No Immune Disorder: No Implanted Vascular Access Dvce: No Kidney Stones: No Musculoskeletal: No Neurologic: No Psychiatric: No Reproductive: No Respiratory: No Immunizations Current: Yes Migraines: No Myocardial Infarction: Yes Radiation Therapy: No Renal Failure: No Seizures: No Sickle Cell Disease: No Sleep Apnea: No Thyroid Disease: No Ulcer: No Tetanus Vaccination: < 5 Years Influenza Vaccination: No Past Surgical History Abdominal Surgery: No AICD: No Appendectomy: No Arteriovenous Shunt: No Cardiac Surgery: No Cholecystectomy: No Coronary Artery Bypass Graft: No Ear Surgery: No Endocrine Surgery: No Eye Surgery: No Genitourinary Surgery: No Gynecologic Surgery: No Insulin Pump: No Joint Replacement: No Neurologic Surgery: No Oral Surgery: No Pacemaker: No Thoracic Surgery: No Other Surgery: No Family History Family Myocardial Infarction: Yes (MOM) Social History Alcohol Use: No Tobacco Use: Yes Substance Use: No Allergies-Medications (Allergen,Severity, Reaction): Coded Allergies: Acetaminophen (Verified Allergy, Severe, HIVES, 03/26/17) Vicodin (Verified Allergy, Severe, HIVES, 03/26/17) Reported Meds & Prescriptions Reported Meds & Active Scripts Active Reported Aspirin Low Dose (Aspirin) 81 Mg Chew 81 Mg CHEW DAILY Seroquel (Quetiapine Fumarate) 100 Mg Tab 100 Mg PO DAILY Review of Systems Except as stated in HPI: all other systems reviewed are Neg Eyes: Positive: Blurred Vision HENT: Positive: Headaches, Lightheadedness Gastrointestinal: Positive: Nausea Physical Exam Narrative GENERAL: Awake and alert. He looks uncomfortable. SKIN: Warm and dry. HEAD: Atraumatic. Normocephalic. EYES: Pupils equal and round. Extraocular movements are intact. NECK: Trachea midline. Neck is supple. CARDIOVASCULAR: Regular rate and rhythm. RESPIRATORY: No accessory muscle use. MUSCULOSKELETAL: No obvious deformities. No edema. NEUROLOGICAL: Awake and alert. No obvious cranial nerve deficits. Motor grossly within normal limits. Normal speech. PSYCHIATRIC: Appropriate mood and affect; insight and judgment normal. Data Data Last Documented VS Vital Signs Date Time Temp Pulse Resp B/P Pulse Ox O2 Delivery O2 Flow Rate FiO2 03/26/17 23:52 98 Nasal Cannula 2 03/26/17 22:49 16 03/26/17 22:37 97.8 88 140/[address] Brain W/O Iv Contrast(Rout) (03/26/17 23:03) Ecg Monitoring (03/26/17 23:30) Iv Access Insert/Monitor (03/26/17 23:30) Oximetry (03/26/17 23:30) Sodium Chloride 0.9% Flush (Ns Flush) (03/26/17 23:30) Prochlorperazine Inj (Compazine Inj) (03/26/17 23:30) Diphenhydramine Inj (Benadryl Inj) (03/26/17 23:30) MDM Medical Decision Making Medical Screen Exam Complete: Yes Emergency Medical Condition: Yes Differential Diagnosis My differential diagnosis of head trauma includes but is not limited to scalp contusion, concussion, intracerebral hemorrhage. Narrative Course Patient presents for evaluation of injury sustained in a fall. He fell and struck the back of his head. He reports positive loss of consciousness. He has signs and symptoms suggestive of a concussion. Verbal report of the head CT is negative. Diagnosis Primary Impression: Concussion Qualified Code: S06.0X1A - Concussion, with LOC of 30 min or less, initial encounter Patient Instructions: Concussion (DC), General Instructions Disposition: 01 DISCHARGE HOME Condition: Stable Zenobia Cantu MD March 26, 2017 23:30
[2017-03-26 23:52] VITALS: O2SAT 98
--- NOTE | 2017-03-27 08:24 | RADRPT ---
EXAM DATE/TIME: 03/26/2017 23:19 [facility] COMPARISON: No previous studies available for comparison. INDICATIONS : Fell hitting back of head. RADIATION DOSE: 39.79 CTDIvol (mGy) MEDICAL HISTORY : Cardiovascular disease. Hepatitis C. SURGICAL HISTORY : None. ENCOUNTER: Initial ACUITY: 1 day PAIN SCALE: 6/10 TECHNIQUE: Multiple contiguous axial images were obtained of the head. Using automated exposure control and adj ustment of the mA and/or kV according to patient size, radiation dose was kept as low as reasonably a chievable to obtain optimal diagnostic quality images. FINDINGS: CEREBRUM: The ventricles are normal for age. No evidence of midline shift, mass lesion, hemorrhage or acute in farction. No extra-axial fluid collections are seen. POSTERIOR FOSSA: The cerebellum and brainstem are intact. The 4th ventricle is midline. The cerebellopontine angle i s unremarkable. EXTRACRANIAL: The visualized portion of the orbits is intact. SKULL: The calvaria is intact. No evidence of skull fracture. CONCLUSION: No acute intracranial injury Betito Ordnoez MD on March 26, 2017 at 23:35 Board Certified Radiologist. This report was verified electronically.
== END 2017-03-27 00:42 | disposition home or self-care (01) ==
LOC: NEPD 22:36
DX: S06.0X1A Concussion with loss of consciousness of 30 minutes or less, initial encounter (principal); I25.2 Old myocardial infarction; Z72.0 Tobacco use; Z79.01 Long term (current) use of anticoagulants; Z86.59 Personal history of other mental and behavioral disorders; Z86.79 Personal history of other diseases of the circulatory system; Z86.19 Personal history of other infectious and parasitic diseases; W11.XXXA Fall on and from ladder, initial encounter
CPT/HCPCS: 70450; 96374; 96375; 99285; J0780; J1200

== ENCOUNTER 2017-04-04 20:27 | Emergency (ER) | payer OTHER ==
[~2017-04-04 20:27] MED LIST changes: -ASPI1TAB69 PO; +ASPI81CH37 CHEW; -PRED-503 PO; -ROBA750T PO; -ULTR50TA5 PO
[2017-04-04 20:36] VITALS: BP 106/70; PULSE 103; RESP 18; TEMP 98.3; O2SAT 96
--- NOTE | 2017-04-04 21:18 | PD ---
Physical Exam Date Seen by Provider: Apr 04, 2017 Time Seen by Provider: 21:16 Data Data Last Documented VS Vital Signs Date Time Temp Pulse Resp B/P Pulse Ox O2 Delivery O2 Flow Rate FiO2 04/04/17 20:36 98.3 103 18 106/70 96 Room Air [facility] Supervised Visit with CAROLINE: No Narrative Course 52 YO M with complaint of head pain, confusion. Request med refills and psych eval. Endorses auditory hallucinations. Denies SI. States out of Seroquel. Denies ETOH, SA. Vitals reviewed. Awaiting bed placement. Gay Cyr Apr 04, 2017 21:18
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
[2017-04-04] MEDS ORDERED: QUEtiapine FUMARATE 300 MG TAB PO ONE (22:00)
[2017-04-04] MEDS ORDERED: KETOROLAC TROMETHAMINE 30 MG/ML (IVP) VIAL IV PUSH ONE (22:00)
[2017-04-04 22:14] LABS: AUTOMATED NEUTROPHIL # 7.9 TH/MM3 (1.8-7.7); BASOPHIL # 0.1 TH/MM3 (0-0.2); BASOPHIL % 0.8 % (0.0-2.0); EOSINOPHIL # 0.1 TH/MM3 (0-0.4); EOSINOPHIL % 0.7 % (0.0-4.0); HEMATOCRIT 44.5 % (39.0-51.0); HEMO FLAGS DIFF FINAL; LYMPH % 19.7 % (9.0-44.0); LYMPHOCYTE # 2.2 TH/MM3 (1.0-4.8); MEAN CELL VOLUME 95.4 FL (80.0-100.0); MEAN CORPUSCULAR HEMOGLOBIN 33.1 PG (27.0-34.0); MEAN CORPUSCULAR HGB CONC 34.7 % (32.0-36.0); NEUT % 71.8 % (16.0-70.0); PLATELET COUNT 216 TH/MM3 (150-450); RED BLOOD COUNT 4.66 MIL/MM3 (4.50-5.90); RED CELL DISTRIBUTION WIDTH 13.3 % (11.6-17.2)
[2017-04-04 22:29] LABS: ANION GAP 12 MEQ/L (5-15); AST (GOT) 62 U/L (15-37); BICARBONATE 24.5 MEQ/L (21.0-32.0); BLOOD UREA NITROGEN 12 MG/DL (7-18); CHLORIDE 108 MEQ/L (98-107); GLOMERULAR FILTRATION RATE 58 ML/MIN (>89); POTASSIUM 3.8 MEQ/L (3.5-5.1); SODIUM (NA) 144 MEQ/L (136-145)
[2017-04-04 22:30] LABS: ALT (GPT) 72 U/L (12-78)
[2017-04-04 22:32] LABS: ALKALINE PHOSPHATASE 62 U/L (45-117); TOTAL BILIRUBIN ADULT 0.8 MG/DL (0.2-1.0)
[2017-04-04 22:57] VITALS: BP 156/74; PULSE 89; RESP 14; TEMP 98.4; O2SAT 97
--- NOTE | 2017-04-04 23:20 | RADRPT ---
EXAM DATE/TIME: 04/04/2017 22:53 [facility] COMPARISON: CT BRAIN W/O CONTRAST, March 26, 2017, 23:19. INDICATIONS : Cephalgia. RADIATION DOSE: 56.35 CTDIvol (mGy) MEDICAL HISTORY : Cardiovascular disease. Hepatitis C. SURGICAL HISTORY : None. ENCOUNTER: Initial ACUITY: 1 day PAIN SCALE: Non-responsive LOCATION: cranial TECHNIQUE: Multiple contiguous axial images were obtained of the head. Using automated exposure control and adj ustment of the mA and/or kV according to patient size, radiation dose was kept as low as reasonably a chievable to obtain optimal diagnostic quality images. FINDINGS: CEREBRUM: The ventricles are normal for age. No evidence of midline shift, mass lesion, hemorrhage or acute in farction. No extra-axial fluid collections are seen. POSTERIOR FOSSA: The cerebellum and brainstem are intact. The 4th ventricle is midline. The cerebellopontine angle i s unremarkable. EXTRACRANIAL: The visualized portion of the orbits is intact. There is a mucous retention cyst at the floor of the left maxillary air cell. SKULL: The calvaria is intact. No evidence of skull fracture. CONCLUSION: No intracranial abnormality demonstrated. 14 mm mucous retention cyst of the left maxillary air cell. Betito Goodman MD on April 04, 2017 at 23:17 Board Certified Radiologist. This report was verified electronically.
[2017-04-05 06:33] VITALS: BP 106/64; PULSE 89; RESP 18; O2SAT 96
[2017-04-05 10:51] VITALS: BP 104/56; PULSE 87; RESP 16; O2SAT 98
[2017-04-05 11:48] VITALS: BP 122/72; PULSE 98; RESP 20; TEMP 98; O2SAT 99
[2017-04-05 17:33] VITALS: BP 124/82; PULSE 80; RESP 18; O2SAT 94
[2017-04-05] MEDS ORDERED: QUEtiapine FUMARATE 300 MG TAB PO SCH (21:00)
[2017-04-05 21:50] LABS: AMPHETAMINE, URINE NEG (NEG); BARBITURATES, URINE NEG (NEG); COCAINE, URINE POS (NEG)
[2017-04-05 22:05] VITALS: BP 127/65; PULSE 75; RESP 18; O2SAT 98
[2017-04-06 02:21] VITALS: BP 114/69; PULSE 92; RESP 18; O2SAT 100
[2017-04-06] MEDS ORDERED: IBUPROFEN 800 MG TAB PO ONE (04:45)
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
[2017-04-06] MEDS ORDERED: SERO100T PO (08:40)
== END 2017-04-06 08:52 | disposition home or self-care (01) ==
LOC: NEPD 20:27 → NEPJ 04-06 08:52
DX: F10.920 Alcohol use, unspecified with intoxication, uncomplicated (principal); F14.10 Cocaine abuse, uncomplicated; Y90.5 Blood alcohol level of 100-119 mg/100 ml; Z79.82 Long term (current) use of aspirin; Z79.899 Other long term (current) drug therapy
CPT/HCPCS: 70450; 80053; 80307; 85025; 96374; 99285; J1885

== ENCOUNTER 2017-04-07 00:25 | Emergency (ER) | payer OTHER ==
--- NOTE | 2017-04-07 00:56 | PD ---
HPI Chief Complaint: Psychiatric Symptoms Time Seen by Provider: 00:52 Travel History International Travel<30 days: No Contact w/Intl Traveler<30days: No Traveled to known affect area: No History of Present Illness HPI 52-year-old white male presents to emergency department as a transfer from [facility] under a Amos act for psychological evaluation and treatment. This is a patient who was just discharged from our facility earlier yesterday. He went to [facility] stating that he was having chest pain. He had an evaluation was medically cleared and was going to be discharged from the patient notified the staff that he was feeling depressed and having suicidal thoughts. He stated that he was going to hold his breath for cut his wrists. The patient was notified that he was going to be transferred to [place]. The patient stated that he did not want to come here but rather be admitted over at [facility]. The patient had a positive drug screen for cocaine again today. The patient denies any toxic ingestions. He had a catheterization on 03/13 at [facility] which showed no acute disease. The patient had cardiac markers was medically cleared. PFSH Past Medical History Hx Anticoagulant Therapy: Yes Arthritis: No Asthma: No Autoimmune Disease: No Blood Disorders: No Bipolar Disorder: Yes Anxiety: No Depression: No Heart Rhythm Problems: No Cancer: No Cardiac Catheterization: Yes (X2) Cardiovascular Problems: Yes High Cholesterol: No Chemotherapy: No Chest Pain: Yes Congestive Heart Failure: No COPD: No Cerebrovascular Accident: No Diabetes: No Diminished Hearing: No Endocrine: No Gastrointestinal Disorders: No GERD: No Glaucoma: No Genitourinary: No Headaches: No Hepatitis: Yes (HEP C) Hiatal Hernia: No Heparin Induced Thrombocytopen: No Hypertension: No Immune Disorder: No Implanted Vascular Access Dvce: No Kidney Stones: No Musculoskeletal: No Neurologic: No Psychiatric: No Reproductive: No Respiratory: No Immunizations Current: Yes Migraines: No Myocardial Infarction: Yes Radiation Therapy: No Renal Failure: No Seizures: No Sickle Cell Disease: No Sleep Apnea: No Thyroid Disease: No Ulcer: No Past Surgical History Abdominal Surgery: No AICD: No Appendectomy: No Arteriovenous Shunt: No Cardiac Surgery: No Cholecystectomy: No Coronary Artery Bypass Graft: No Ear Surgery: No Endocrine Surgery: No Eye Surgery: No Genitourinary Surgery: No Gynecologic Surgery: No Insulin Pump: No Joint Replacement: No Neurologic Surgery: No Oral Surgery: No Pacemaker: No Thoracic Surgery: No Other Surgery: No Social History Alcohol Use: No Tobacco Use: Yes Substance Use: Yes Allergies-Medications (Allergen,Severity, Reaction): Coded Allergies: Acetaminophen (Verified Allergy, Severe, HIVES, 03/26/17) Vicodin (Verified Allergy, Severe, HIVES, 03/26/17) Reported Meds & Prescriptions Reported Meds & Active Scripts Active Seroquel (Quetiapine Fumarate) 100 Mg Tab 100 Mg PO BID Reported Aspirin Low Dose (Aspirin) 81 Mg Chew 81 Mg CHEW DAILY Seroquel (Quetiapine Fumarate) 100 Mg Tab 300 Mg PO DAILY Review of Systems Except as stated in HPI: all other systems reviewed are Neg General / Constitutional: No: Fever, Chills Eyes: No: Diploplia, Blurred Vision HENT: No: Headaches, Congestion Cardiovascular: Positive: Chest Pain or Discomfort, Dyspnea on exertion, No: Palpitations Respiratory: No: Cough, Shortness of Breath Gastrointestinal: No: Nausea, Vomiting Genitourinary: No: Dysuria, Hematuria Musculoskeletal: Positive: Arthralgias, Limited ROM, Pain (chronic back pain) Skin: No Rash, No Itching Neurologic: No: Headache, Incontinence Psychiatric: Positive: Anxiety, Depression, Suicidal Ideations, Mood Disorder, Substance Abuse, No: Disorder of Thought, Homicidal Ideation Physical Exam Narrative GENERAL: Well-nourished, well-developed patient. SKIN: Warm and dry. HEAD: Normocephalic and atraumatic. EYES: No scleral icterus. No injection or drainage. ENT: No nasal drainage noted. Mucous membranes pink. Airway patent. NECK: Supple, trachea midline. Moves head freely without obvious discomfort. CARDIOVASCULAR: Regular rate and rhythm without murmurs, gallops, or rubs. RESPIRATORY: Breath sounds equal bilaterally. No accessory muscle use. GASTROINTESTINAL: Abdomen soft, non-tender, nondistended. EXTREMITIES: No cyanosis or edema. BACK: Nontender without obvious deformity. No CVA tenderness. NEURO: Patient is alert and oriented. no sensorimotor deficits. Nonfocal. Normal speech. PSYCH: No delusions. No auditory or visual hallucinations. MDM Medical Decision Making Medical Screen Exam Complete: Yes Emergency Medical Condition: Yes Medical Record Reviewed: Yes Interpretation(s) Patient's laboratory tests from [facility] have been reviewed. Differential Diagnosis MDM: High Differential diagnoses: Schizophrenia, schizoaffective disorder, bipolar, anxiety, depression, adjustment reaction, mood disorder NOS, ODD, depressive disorder NOS, dementia, dementia with agitation, psychosis NOS, substance induced mood disorder, intermittent explosive disorder, Asperger syndrome, infection,electrolyte abnormality, malingering. Narrative Course Mental health screening discussed with the patient. Psychiatric screen ordered. The patient been medically cleared. This is medical clearance for psych admission, cocaine abuse Diagnosis Primary Impression: Medical clearance for psychiatric admission Additional Impression: Cocaine abuse Condition: Stable Cy Jaeger Apr 07, 2017 00:56
[2017-04-07 02:14] VITALS: BP 113/78; PULSE 77; RESP 18; TEMP 98.7; O2SAT 99
--- NOTE | 2017-04-07 08:58 | PD.CONS ---
Provisional Diagnosis Admission Date [place] I. Substance-induced mood disorder F 19.94 cocaine abuse F-14.10 alcohol abuse F 10.10, malingering Z 76.5 History of Present Illness Service Psychiatry Consult Requested By EDMD Reason for Consult Bette wheat Primary Care Physician Non-Staff HPI Patient is a 52-year-old white male comes here under Amos act by a [facility] son by a Betito Urban dated 04/06/17 at 5:40 PM stating depression bipolar disorder suicidal ideation this document reviewed also stated patient reports suicidal ideation with a plan to hold his breath or " slit my wrists" of interest patient was seen here admitted to the ED on 04/04/17 under visit [id number] and seen by our sales agent protective service on 610 and released with diagnosis of alcohol intoxication at that visit blood alcohol level was 112 and urine toxicology positive for cocaine. His given a 10 day supply of Seroquel 100 mg 3 at at bedtime #30 no refill. This above the patient's third to fourth visit within this past month for various medical complaints though this was the first time he mentioned anything mental health issue. After being discharged appears she went hospital shopping to various emergency departments until he did get himself Bette acted again. At the present time patient sitting in his room on J pod nurse Gael present throughout session patient stating a recent move here from the [facility] the past month or so stating mental health issues. Also acknowledging being a chronic alcoholic with multiple detoxes and also 4-5 DUIs. 3 states he doesn't drink anymore. 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 He states he is staying with a friend though it appears that it might be a somewhat tenuous situation. He continues vague various contradictory confusing statements about suicidality of voices. There does not appear to be responding to internal stimuli. He states he has been taking Seroquel but is running out. He did not mention to me the fact that he got a prescription yesterday for the medication. In any event I feel this patient at this time is manipulating with an attempt to gain admission to the hospital after that also might be malingering with this. In any event at the present time patient does not meet Amos criteria. Thus I'll lift the Bette act he may continue his medications and use the cervical referral that he did receive. Strong recommendation NA/AA, also referred to [facility] for mental health services in the community Review of Systems Constitutional: DENIES: Diaphoretic episodes, Fatigue, Fever, Weight gain, Weight loss, Chills, Dizziness, Change in appetite, Night Sweats Endocrine: DENIES: Heat/cold intolerance, Polydipsia, Polyuria, Polyphagia Eyes: DENIES: Blurred vision, Diplopia, Eye inflammation, Eye pain, Vision loss , Photosensitivity, Double Vision Ears, nose, mouth, throat: DENIES: Tinnitus, Hearing loss, Vertigo, Nasal discharge, Oral lesions, Throat pain, Hoarseness, Ear Pain, Running Nose, Epistaxis, Sinus Pain, Toothache, Odynophagia Respiratory: DENIES: Apneas, Cough, Snoring, Wheezing, Hemoptysis, Sputum production, Shortness of breath Cardiovascular: DENIES: Chest pain, Palpitations, Syncope, Dyspnea on Exertion , PND, Lower Extremity Edema, Orthopnea, Claudication Gastrointestinal: DENIES: Abdominal pain, Black stools, Bloody stools, Constipation, Diarrhea, Nausea, Vomiting, Difficulty Swallowing, Anorexia Genitourinary: DENIES: Sexual dysfunction, Urinary frequency, Urinary incontinence, Urgency, Hematuria, Dysuria, Nocturia, Penile Discharge, Testicular Pain, Testicular Swelling Musculoskeletal: DENIES: Joint pain, Muscle aches, Stiffness, Joint Swelling, Back pain, Neck pain Integumentary: DENIES: Abnormal pigmentation, Nail changes, Pruritus, Rash Hematologic/lymphatic: DENIES: Bruising, Lymphadenopathy Immunologic/allergic: DENIES: Eczema, Urticaria Neurologic: DENIES: Abnormal gait, Headache, Localized weakness, Paresthesias, Seizures, Speech Problems, Tremor, Poor Balance Psychiatric: COMPLAINS OF: Anxiety, Depression, Suicidal Ideation (vague and manipulating) Past Family Social History Coded Allergies: Acetaminophen (Verified Allergy, Severe, HIVES, 03/26/17) Vicodin (Verified Allergy, Severe, HIVES, 03/26/17) Past Medical History Medically cleared ED Active Scripts Quetiapine (Seroquel)100 Mg [id number] Mg PO BID #30 TAB Ref 0 Prov:Dulce Melgar FURNACE TAPPER 04/06/17 Reported Medications Aspirin (Aspirin Low Dose)81 Mg Chew81 Mg CHEW DAILY Ref 0 03/26/17 Quetiapine (Seroquel)100 Mg [id number] Mg PO DAILY #30 TAB Ref 0 03/16/17 Family History unknown at this time Social History It appears patient may be homeless. Patient's Strengths (min. 2) Patient able to access healthcare is verbal Physical Exam Patient medically cleared ED Vital Signs Vital Signs Date Time Temp Pulse Resp B/P Pulse Ox O2 Delivery O2 Flow Rate FiO2 04/07/17 02:14 98.7 77 18 113/78 99 Room Air Mental Status Examination Alert oriented white male slender long dirty black care and scruffy aceves. He is calm to irritable and manipulative with intense eye contact, somewhat guarded in his responses Appearance Scruffy and disheveled Orientation: x3 Memory: Unremarkable Thought Process: Linear Thought Content: Unremarkable Language Maltese poor Fund of Knowledge Poor Hallucination Type: Auditory (vague manipulating) Attention and Concentration: Other (fair) Suicidal Ideation: Yes (making vague manipulating statements I feel this is an attempt to gain hospitalization) Previous Suicide Attempts: No Homicidal Ideation: No Previous Homicide Attempts: No Insight: Poor Judgment: Poor Affect: Other (slight increase range intensity) Mood: Euthymic, Irritable Motor Activity: Normal gait Assessment & Plan Problem List: (1) Substance induced mood disorder ICD Code: F19.94 (2) Cocaine abuse ICD Code: F14.10 (3) Alcohol abuse ICD Code: F10.10 (4) Malingering ICD Code: Z76.5 Assessment & Plan Estimated LOS: days patient does not meet Amos criteria will lift Bette act to be no Rx by me patient Snider ask given yesterday by our nurse practitioner. Will refer patient to [facility] for [facility] follow-up, refer also to NA/AA Discharge Planning See above Request HC Surrog/Guard Advoc?: No Betito Lane MD Apr 07, 2017 08:58
== END 2017-04-07 09:30 | disposition home or self-care (01) ==
LOC: NEPJ 00:25
DX: Z02.89 Encounter for other administrative examinations (principal); F14.10 Cocaine abuse, uncomplicated; F19.94 Other psychoactive substance use, unspecified with psychoactive substance-induced mood disorder; F10.10 Alcohol abuse, uncomplicated; I25.2 Old myocardial infarction; Z76.5 Malingerer [conscious simulation]; Z72.0 Tobacco use; Z79.82 Long term (current) use of aspirin; Z86.59 Personal history of other mental and behavioral disorders; Z86.79 Personal history of other diseases of the circulatory system; Z86.19 Personal history of other infectious and parasitic diseases
CPT/HCPCS: 99284

== ENCOUNTER 2017-05-18 17:17 | Observation (INO) | payer SELFPAY ==
[~2017-05-18] VITALS: Ht 175.3 cm; Wt 74.0 kg
[2017-05-18] MEDS ORDERED: ASPIRIN 81 MG CHEW TAB PO ONE (17:30)
[2017-05-18] MEDS ORDERED: SODIUM CHLORIDE 0.9% FLUSH 10 ML FLUSH IVF PRN (17:30)
[2017-05-18 17:40] VITALS: RESP 14; O2SAT 97
[2017-05-18 17:42] VITALS: BP 118/70; PULSE 85; RESP 14; TEMP 98; O2SAT 100
--- NOTE | 2017-05-18 17:47 | PD ---
HPI Chief Complaint: chest pain Time Seen by Provider: 17:35 Travel History International Travel<30 days: No Contact w/Intl Traveler<30days: No History of Present Illness HPI 52-year-old male presents to the emergency department for evaluation of substernal chest pain that occurred approximately prior to arrival. He states he is walking when he started with substernal chest pain. He currently rates the pain 8/10. EMS gave him aspirin 81 mg, nitroglycerin 0.4 milligrams sublingually prior to arrival. Patient took a baby aspirin this morning as well. Patient states the nitroglycerin did not help his pain at all. Patient reports history of cardiac catheterization approximate 10 years ago and states he had "mild heart attack". Patient was admitted in February of this year for chest pain. He had a stress test done in February 2017 that showed reversible perfusion defect anterior wall suggesting stress-induced myocardial ischemia, normal ejection fraction, risk category intermediate. It was determined that time, the patient should have a cardiac catheterization. However, before having the cardiac catheterization, he left AGAINST MEDICAL ADVICE. He states he has not followed up with a warehouse consultant or has been seen since he left against medical advice. Patient reports history of hepatitis C, bipolar disorder, CAD. PFSH Past Medical History Hx Anticoagulant Therapy: Yes Arthritis: No Asthma: No Autoimmune Disease: No Blood Disorders: No Bipolar Disorder: Yes Anxiety: No Depression: No Heart Rhythm Problems: No Cancer: No Cardiac Catheterization: Yes (X2) Cardiovascular Problems: Yes High Cholesterol: No Chemotherapy: No Chest Pain: Yes Congestive Heart Failure: No COPD: No Cerebrovascular Accident: No Diabetes: No Diminished Hearing: No Endocrine: No Gastrointestinal Disorders: No GERD: No Glaucoma: No Genitourinary: No Headaches: No Hepatitis: Yes (HEP C) Hiatal Hernia: No Heparin Induced Thrombocytopen: No Hypertension: No Immune Disorder: No Implanted Vascular Access Dvce: No Kidney Stones: No Musculoskeletal: No Neurologic: No Psychiatric: No Reproductive: No Respiratory: No Immunizations Current: Yes Migraines: No Myocardial Infarction: Yes Radiation Therapy: No Renal Failure: No Seizures: No Sickle Cell Disease: No Sleep Apnea: No Thyroid Disease: No Ulcer: No Past Surgical History Abdominal Surgery: No AICD: No Appendectomy: No Arteriovenous Shunt: No Cardiac Surgery: No Cholecystectomy: No Coronary Artery Bypass Graft: No Ear Surgery: No Endocrine Surgery: No Eye Surgery: No Genitourinary Surgery: No Gynecologic Surgery: No Insulin Pump: No Joint Replacement: No Neurologic Surgery: No Oral Surgery: No Pacemaker: No Thoracic Surgery: No Other Surgery: No Social History Alcohol Use: No Tobacco Use: Yes Substance Use: Yes Allergies-Medications (Allergen,Severity, Reaction): Coded Allergies: Acetaminophen (Verified Allergy, Severe, HIVES, 03/26/17) Vicodin (Verified Allergy, Severe, HIVES, 03/26/17) Reported Meds & Prescriptions Reported Meds & Active Scripts Active Reported Aspirin Low Dose (Aspirin) 81 Mg Chew 81 Mg CHEW DAILY Seroquel (Quetiapine Fumarate) 100 Mg Tab 300 Mg PO DAILY Review of Systems Except as stated in HPI: all other systems reviewed are Neg Physical Exam Narrative GENERAL: Well-nourished, well-developed male patient, afebrile. SKIN: Focused skin assessment warm/dry. HEAD: Normocephalic. Atraumatic. EYES: No scleral icterus. No injection or drainage. NECK: Supple, trachea midline. No JVD or lymphadenopathy. CARDIOVASCULAR: Regular rate and rhythm without murmurs, gallops, or rubs. Bilateral radial and pedal pulses are 2+. RESPIRATORY: Breath sounds equal bilaterally. No accessory muscle use. Lungs sounds are clear to auscultation. GASTROINTESTINAL: Abdomen soft, non-tender, nondistended. MUSCULOSKELETAL: No cyanosis, or edema. BACK: Nontender without obvious deformity. No CVA tenderness. Data Data Last Documented VS Vital Signs Date Time Temp Pulse Resp B/P Pulse Ox O2 Delivery O2 Flow Rate FiO2 05/18/17 17:46 85 14 100 Nasal Cannula 2 05/18/17 17:42 98.0 118/70 Orders Electrocardiogram (05/18/17 17:26) Ckmb (Isoenzyme) Profile (05/18/17 17:26) Complete Blood Count With Diff (05/18/17:) Comprehensive Metabolic Panel (05/18/17:) Magnesium (Mg) (05/18/17:) Prothrombin Time / Inr (Pt) (05/18/17 17:) Act Partial Throm Time (Ptt) (05/18/17 17:26) Troponin I (05/18/17:) Ecg Monitoring (05/18/17:) Iv Access Insert/Monitor (05/18/17 17:26) Oximetry (05/18/17 17:26) Oxygen Administration (05/18/17 17:26) Aspirin Chew (Aspirin Chew) (05/18/17 17:30) Sodium Chloride 0.9% Flush (Ns Flush) (05/18/17 17:30) Chest, Single Ap (05/18/17 ) CKMB (05/18/17 17:45) CKMB% (05/18/17 17:45) Labs Laboratory Tests Test 05/18/17 17:45 White Blood Count 12.0 TH/MM3 Red Blood Count 4.41 MIL/MM3 Hemoglobin 14.8 GM/DL Hematocrit 42.6 % Mean Corpuscular Volume 96.6 FL Mean Corpuscular Hemoglobin 33.6 PG Mean Corpuscular Hemoglobin 34.8 % Concent Red Cell Distribution Width 13.4 % Platelet Count 189 TH/MM3 Mean Platelet Volume 8.2 FL Neutrophils (%) (Auto) 83.9 % Lymphocytes (%) (Auto) 11.2 % Monocytes (%) (Auto) 4.2 % Eosinophils (%) (Auto) 0.1 % Basophils (%) (Auto) 0.6 % Neutrophils # (Auto) 10.1 TH/MM3 Lymphocytes # (Auto) 1.3 TH/MM3 Monocytes # (Auto) 0.5 TH/MM3 Eosinophils # (Auto) 0.0 TH/MM3 Basophils # (Auto) 0.1 TH/MM3 CBC Comment DIFF FINAL Differential Comment Prothrombin Time 10.5 SEC Prothromb Time International 1.0 RATIO Ratio Activated Partial 30.0 SEC Thromboplast Time Sodium Level 144 MEQ/L Potassium Level 3.7 MEQ/L Chloride Level 109 MEQ/L Carbon Dioxide Level 23.3 MEQ/L Anion Gap 12 MEQ/L Blood Urea Nitrogen 23 MG/DL Creatinine 1.08 MG/DL Estimat Glomerular Filtration 72 ML/MIN Rate Random Glucose 54 MG/DL Calcium Level 8.2 MG/DL Magnesium Level 2.0 MG/DL Total Bilirubin 0.8 MG/DL Aspartate Amino Transf 94 U/L (AST/SGOT) Alanine Aminotransferase 85 U/L (ALT/SGPT) Alkaline Phosphatase 62 U/L Total Creatine Kinase 227 U/L Creatine Kinase MB 7.2 NG/ML Troponin I LESS THAN 0.02 NG/ML Total Protein 7.1 GM/DL Albumin 3.6 GM/DL MDM Medical Decision Making Medical Screen Exam Complete: Yes Emergency Medical Condition: Yes Medical Record Reviewed: Yes Interpretation(s) chest x-ray - CONCLUSION: No acute disease. Differential Diagnosis ACS versus chest wall pain versus pneumonia versus pneumothorax versus PE Narrative Course 52-year-old male presents to the emergency department for evaluation of midsternal chest pain that occurred just prior to arrival. Patient was seen in February it and was to have a cardiac catheterization, but the patient left against advice before cardiac catheter was completed. Patient has not been seen since. EKG shows sinus rhythm, heart rate 81, no acute ST changes. CBC, BMP, CK, troponin, magnesium, PTT, PTT/INR, chest x-ray ordered and pending. Patient has received aspirin 162 mg by mouth and nitroglycerin 1 prior to arrival. CBC shows leukocytosis 12.0. BMP shows BUN 23, glucose 54, AST 94, ALT 85. CK is 227. Troponin is less than 0.02. Magnesium is 2.0. Coags are unremarkable. Chest x-ray shows no acute disease. Upon my examination, patient is resting. Patient will be admitted to the hospital due to leaving AMA with cardiac catheterization was recommended previously. [facility] is paged for admission. Dr. Pike accepted admission. Diagnosis Primary Impression: Chest pain Qualified Code: R07.9 - Chest pain, unspecified type Admitting Information Admitting Physician Requests: Admit Pilar Dominguez May 18, 2017 17:47
--- NOTE | 2017-05-18 18:15 | RADRPT ---
EXAM DATE/TIME: 05/18/2017 17:55 [facility] COMPARISON: CHEST SINGLE AP, March 16, 2017, 17:43. INDICATIONS : Chest pain. MEDICAL HISTORY : Cardiovascular disease SURGICAL HISTORY : None. ENCOUNTER: Initial ACUITY: 1 day PAIN SCORE: 8/10 LOCATION: Bilateral chest FINDINGS: A single view of the chest demonstrates the lungs to be symmetrically aerated without evidence of mas s, infiltrate or effusion. The cardiomediastinal contours are unremarkable. Osseous structures are intact. CONCLUSION: No acute disease. Robert Mantilla MD on May 18, 2017 at 18:13 Board Certified Radiologist. This report was verified electronically.
[2017-05-18 18:35] LABS: AUTOMATED NEUTROPHIL # 10.1 TH/MM3 (1.8-7.7); BASOPHIL # 0.1 TH/MM3 (0-0.2); BASOPHIL % 0.6 % (0.0-2.0); EOSINOPHIL % 0.1 % (0.0-4.0); HEMATOCRIT 42.6 % (39.0-51.0); HEMO FLAGS DIFF FINAL; LYMPH % 11.2 % (9.0-44.0); LYMPHOCYTE # 1.3 TH/MM3 (1.0-4.8); MEAN CELL VOLUME 96.6 FL (80.0-100.0); MEAN CORPUSCULAR HEMOGLOBIN 33.6 PG (27.0-34.0); MEAN CORPUSCULAR HGB CONC 34.8 % (32.0-36.0); MONO % 4.2 % (0.0-8.0); NEUT % 83.9 % (16.0-70.0); PLATELET COUNT 189 TH/MM3 (150-450); RED BLOOD COUNT 4.41 MIL/MM3 (4.50-5.90); RED CELL DISTRIBUTION WIDTH 13.4 % (11.6-17.2)
[2017-05-18 18:37] LABS: PROTHROMBIN TIME - PATIENT 10.5 SEC (9.8-11.6)
[2017-05-18 18:55] LABS: ALKALINE PHOSPHATASE 62 U/L (45-117); CREATINE KINASE 227 U/L (39-308); TOTAL BILIRUBIN ADULT 0.8 MG/DL (0.2-1.0)
[2017-05-18 19:07] LABS: CKMB 7.2 NG/ML (0.5-3.6)
[2017-05-18 19:08] LABS: ALT (GPT) 85 U/L (12-78); ANION GAP 12 MEQ/L (5-15); AST (GOT) 94 U/L (15-37); BICARBONATE 23.3 MEQ/L (21.0-32.0); BLOOD UREA NITROGEN 23 MG/DL (7-18); CHLORIDE 109 MEQ/L (98-107); GLOMERULAR FILTRATION RATE 72 ML/MIN (>89); POTASSIUM 3.7 MEQ/L (3.5-5.1); SODIUM (NA) 144 MEQ/L (136-145)
[2017-05-18 20:00] VITALS: BP 96/54; PULSE 85; RESP 19; O2SAT 96
--- NOTE | 2017-05-18 20:06 | HHI.HP ---
[facility] Physician No Primary Care Physician Admission Diagnosis chest pain Diagnoses: (1) Chest pain (2) Non-compliance Diagnosis: Principal (3) Dehydration Diagnosis: Principal (4) Cocaine abuse Diagnosis: Principal (5) Alcohol abuse Diagnosis: Principal (6) Leukocytosis Diagnosis: Principal Travel History International Travel<30 Days: No Contact w/Intl Traveler <30 Da: No Traveled to Known Affected Are: No History of Present Illness This is a 52-year-old male with a PMH of Bipolar Disorder, HTN, CAD, Alcohol Abuse, Cocaine Abuse, Hepatitis C and Noncompliance was brought to the ER by EMS secondary to chest pain. Per patient symptoms started acutely shortly prior to arrival. S/p NTG with no significant improvement. Given ASA by EMS and additional NTG w/ some relief. Previous admit 03/17/17 for similar complaints, s/p Nuclear Stress 03/17/17 w/ reversible perfusion defect anterior wall suggesting stress-induced ischemia, normal EF. S/p eval by Dr. Andrea w/ plans for Cardiac Cath, however pt left AMA because we were "incompetent". States he was seen at [facility] shortly afterwards and underwent Cardiac Cath which was normal, no records available at this time. Review of Systems Except as stated in HPI: all other systems reviewed are Neg ROS: 14 point review of systems otherwise negative. Past Family Social History Past Medical History PMH: Bipolar Disorder, HTN, CAD, Alcohol Abuse, Cocaine Abuse, Hepatitis C and Noncompliance Past Surgical History PAST SURGICAL HISTORY: None Allergies: Coded Allergies: Acetaminophen (Verified Allergy, Severe, HIVES, 03/26/17) Vicodin (Verified Allergy, Severe, HIVES, 03/26/17) Family History PAST FAMILY HISTORY: Reviewed. No h/o DM or CAD Social History PAST SOCIAL HISTORY: History of alcohol. Positive for tobacco. Positive for Cocaine. Physical Exam Vital Signs Vital Signs Date Time Temp Pulse Resp B/P Pulse Ox O2 Delivery O2 Flow Rate FiO2 05/18/17 17:46 85 14 100 Nasal Cannula 2 05/18/17 17:42 98.0 85 14 118/70 100 05/18/17 17:40 97 Nasal Cannula 2 05/18/17 17:40 14 97 Room Air Physical Exam PE: GENERAL: Middle-aged male in no acute distress. HEENT: PERRLA, EOMI. No scleral icterus or conjunctival pallor. No lid lag or facial droop. CARDIOVASCULAR: Regular rate and rhythm. No obvious murmurs to auscultation. No chest tenderness to palpation. RESPIRATORY: No obvious rhonchi or wheezing. Clear to auscultation. Breath sounds equal bilaterally. GASTROINTESTINAL: Abdomen soft, non-tender, nondistended. BS normal. MUSCULOSKELETAL: Extremities without clubbing, cyanosis, or edema. No obvious deformities. NEUROLOGICAL: Awake, alert and oriented x4. No focal neurologic deficits. Moving both upper and lower extremities spontaneously. Laboratory Laboratory Tests Test 05/18/17 17:45 White Blood Count 12.0 Red Blood Count 4.41 Hemoglobin 14.8 Hematocrit 42.6 Mean Corpuscular Volume 96.6 Mean Corpuscular Hemoglobin 33.6 Mean Corpuscular Hemoglobin 34.8 Concent Red Cell Distribution Width 13.4 Platelet Count 189 Mean Platelet Volume 8.2 Neutrophils (%) (Auto) 83.9 Lymphocytes (%) (Auto) 11.2 Monocytes (%) (Auto) 4.2 Eosinophils (%) (Auto) 0.1 Basophils (%) (Auto) 0.6 Neutrophils # (Auto) 10.1 Lymphocytes # (Auto) 1.3 Monocytes # (Auto) 0.5 Eosinophils # (Auto) 0.0 Basophils # (Auto) 0.1 CBC Comment DIFF FINAL Differential Comment Prothrombin Time 10.5 Prothromb Time International 1.0 Ratio Activated Partial 30.0 Thromboplast Time Sodium Level 144 Potassium Level 3.7 Chloride Level 109 Carbon Dioxide Level 23.3 Anion Gap 12 Blood Urea Nitrogen 23 Creatinine 1.08 Estimat Glomerular Filtration 72 Rate Random Glucose 54 Calcium Level 8.2 Magnesium Level 2.0 Total Bilirubin 0.8 Aspartate Amino Transf 94 (AST/SGOT) Alanine Aminotransferase 85 (ALT/SGPT) Alkaline Phosphatase 62 Total Creatine Kinase 227 Creatine Kinase MB 7.2 Troponin I LESS THAN 0.02 Total Protein 7.1 Albumin 3.6 Result Diagram: 05/18/17 9615 05/18/17 1745 Assessment and Plan Problem List: (1) Chest pain ICD Code: R07.9 Status: Acute (2) Non-compliance ICD Code: Z91.19 Status: Acute (3) Dehydration ICD Code: E86.0 Status: Acute (4) Cocaine abuse ICD Code: F14.10 Status: Acute (5) Alcohol abuse ICD Code: F10.10 Status: Acute (6) Leukocytosis ICD Code: D72.829 Status: Acute Assessment and Plan A/P: 1. Chest Pain: acute onset of substernal chest pain, h/o CAD, previous admit w/ Nuclear Stress showing reversible defect suggestive of ischemia, was to undergo Cath by Dr. Andrea, however Left AMA felt we were "incompetent". Seen at [facility] and underwent Cath, negative per pt. Will attempt to obtain records. Initial trop negative, EKG w/ no acute ischemia. H/o Cocaine, check Urine Drug Screen. NTG/Morphine prn, Ativan prn, ASA, Statin. Hold B-nidia in light of cocaine abuse. Cardiology eval if needed. 2. Non-Compliance: Pt non-compliant w/ treatment plan and follow up, as above. Stressed importance of compliance. 3. Dehydration: GFR 72, BUN 23, Check U/a, Urine Drug Screen, IVF for hydration. Repeat labs in am. 4. Cocaine Abuse: h/o Cocaine, check Urine Drug Screen, Ativan prn. 5. Alcohol Abuse: Denies recent ingestion, will monitor. Ativan prn. 6. DVT Prophylaxis: SCD/Teds. 7. Social work for d/c planning as needed. 8. Case discussed w/ ER physician at length Problem Qualifiers (1) Chest pain: Qualified Code: R07.9 - Chest pain, unspecified type Liset Pike MD May 18, 2017 20:06
[2017-05-18] MEDS ORDERED: MORPHINE SULFATE 4 MG/ML INJ IV PRN (20:15)
[2017-05-18] MEDS ORDERED: LACTULOSE SYRUP 20 GM/30 ML CUP PO PRN (20:15)
[2017-05-18] MEDS ORDERED: SENNOSIDES 8.6 MG TAB PO PRN (20:15)
[2017-05-18] MEDS ORDERED: NITROGLYCERIN 2% OINT 1 GM PACKET TOPICAL PRN (20:15)
[2017-05-18] MEDS ORDERED: SODIUM CHLORIDE 0.9% FLUSH 10 ML FLUSH IV FLUSH PRN (20:15)
[2017-05-18] MEDS ORDERED: BISACODYL 10 MG SUPP RECTAL PRN (20:15)
[2017-05-18] MEDS ORDERED: MAGNESIUM HYDROXIDE SUSP 30 ML CUP PO PRN (20:15)
[2017-05-18] MEDS ORDERED: LORazepam 2 MG/ML VIAL IV PUSH PRN (20:15)
[2017-05-18] MEDS ORDERED: ONDANSETRON HCL 4 MG/2 ML VIAL IVP PRN (20:15)
[2017-05-18] MEDS: SODIUM CHLOR 0.9% 1000 ML INJ 1,000 ML IV SCH (20:32)
[2017-05-18] MEDS: SODIUM CHLORIDE 0.9% FLUSH 10 ML FLUSH IV FLUSH SCH (20:32)
[2017-05-18 22:13] VITALS: BP 118/69; PULSE 84; RESP 20; TEMP 98; O2SAT 97
[2017-05-18] MEDS: DOCUSATE SODIUM 50 MG/SENNA 8.6 MG TAB PO SCH (22:30)
[2017-05-18] MEDS: PRAVASTATIN SOD 40 MG TAB PO SCH (22:38)
[2017-05-18 23:11] VITALS: PULSE 89
[2017-05-19] VITALS (12 sets, daily range): BP systolic 95–134; BP diastolic 51–86; PULSE 56–89; RESP 14–20; TEMP 97.6–98.1; O2SAT 95–98
[2017-05-19 05:27] LABS: AUTOMATED NEUTROPHIL # 5.7 TH/MM3 (1.8-7.7); BASOPHIL # 0.1 TH/MM3 (0-0.2); EOSINOPHIL # 0.2 TH/MM3 (0-0.4); EOSINOPHIL % 2.1 % (0.0-4.0); HEMATOCRIT 39.5 % (39.0-51.0); HEMO FLAGS DIFF FINAL; LYMPH % 20.4 % (9.0-44.0); LYMPHOCYTE # 1.7 TH/MM3 (1.0-4.8); MEAN CELL VOLUME 95.2 FL (80.0-100.0); MEAN CORPUSCULAR HEMOGLOBIN 33.2 PG (27.0-34.0); MEAN CORPUSCULAR HGB CONC 34.9 % (32.0-36.0); MONO % 8.5 % (0.0-8.0); PLATELET COUNT 160 TH/MM3 (150-450); RED BLOOD COUNT 4.15 MIL/MM3 (4.50-5.90); RED CELL DISTRIBUTION WIDTH 12.9 % (11.6-17.2); WHITE BLOOD COUNT 8.4 TH/MM3 (4.0-11.0)
[2017-05-19] MEDS: SODIUM CHLOR 0.9% 1000 ML INJ 1,000 ML IV SCH ×2 (05:33→16:20)
[2017-05-19 05:49] LABS: ALKALINE PHOSPHATASE 67 U/L (45-117); ALT (GPT) 128 U/L (12-78); ANION GAP 7 MEQ/L (5-15); AST (GOT) 183 U/L (15-37); BICARBONATE 26.8 MEQ/L (21.0-32.0); BLOOD UREA NITROGEN 28 MG/DL (7-18); CHLORIDE 107 MEQ/L (98-107); GLOMERULAR FILTRATION RATE 93 ML/MIN (>89); POTASSIUM 3.5 MEQ/L (3.5-5.1); SODIUM (NA) 141 MEQ/L (136-145); TOTAL BILIRUBIN ADULT 0.4 MG/DL (0.2-1.0)
[2017-05-19] MEDS: SODIUM CHLORIDE 0.9% FLUSH 10 ML FLUSH IV FLUSH SCH ×2 (08:35→21:00)
[2017-05-19] MEDS: QUEtiapine FUMARATE 100 MG TAB PO SCH (08:35)
[2017-05-19] MEDS: ASPIRIN 81 MG CHEW TAB CHEW SCH (08:35)
[2017-05-19] MEDS: DOCUSATE SODIUM 50 MG/SENNA 8.6 MG TAB PO SCH ×2 (08:37→21:00)
[2017-05-19 09:40] LABS: BACTERIA, URINE OCC /hpf; BLOOD, URINE NEG (NEG); COMMENT (UR) CULTURE INDICATED; CULTURE IF INDICATED CULTURE INDICATED; GLUCOSE,URINE 70 mg/dL (NEG); KETONE, URINE NEG (NEG); MUCUS URINE FEW /lpf (OCC); NITRITE,URINE NEG (NEG); SQUAMOUS EPITHELIAL CELL URINE <1 /hpf (0-5); URINE COLOR YELLOW (YELLW/STRAW)
[2017-05-19 09:45] LABS: AMPHETAMINE, URINE NEG (NEG); BARBITURATES, URINE NEG (NEG); COCAINE, URINE POS (NEG)
--- NOTE | 2017-05-19 10:12 | HHI.PR ---
Subjective Remarks Follow-up for chest pain. The patient is very guarded with his history, initially told the admitting physician that he had a heart catheterization done recently at [facility] in [place], however upon my questioning the patient initially continued to say "I don't remember", then later after cath procedure explained to him, he denied ever having a heart cath. He later then appears to believe his nuclear stress test he had done here was a heart catheterization. I again discussed his abnormal nuclear stress test done in February which showed possible reversible perfusion defects and that heart catheterization was recommended at that time. The patient is now agreeing to cath, however discussed would need a repeat cardiology evaluation to consider if cath still appropriate, patient verbalized understanding. He denies any chest pain today. The patient denies recent cocaine use although urine drug screen positive for cocaine. Objective Vitals Vital Signs Date Time Temp Pulse Resp B/P Pulse Ox O2 Delivery O2 Flow Rate FiO2 05/19/17 07:37 98.0 67 14 110/65 97 05/19/17 04:07 64 05/19/17 03:59 97.6 65 18 100/51 95 05/19/17 00:23 89 05/18/17 23:11 89 05/18/17 22:13 98.0 84 20 118/69 97 05/18/17 20:00 85 19 96/54 96 Room Air 05/18/17 17:46 85 14 100 Nasal Cannula 2 05/18/17 17:42 98.0 85 14 118/70 100 05/18/17 17:40 97 Nasal Cannula 2 05/18/17 17:40 14 97 Room Air I/O 05/18/17 05/18/17 05/18/17 05/19/17 05/19/17 05/19/17 07:00 15:00 23:00 07:00 15:00 23:00 Intake Total 360 ml 873 ml Balance 360 ml 873 ml Intake Oral 360 ml IV Total 873 ml # Voids 1 Result Diagram: 05/19/17 0450 05/19/17 0450 Imaging Last Impressions Chest X-Ray 05/18/17 0000 Signed Impressions: Service Date/Time: Thursday, May 18, 2017 17:55 - CONCLUSION: No acute disease. Robert Mantilla MD Objective Remarks GENERAL: Well-nourished, well-developed thin male patient in NAD. SKIN: Warm and dry. No rash. HEENT: Normocephalic. Atraumatic. Pupils equal and round. Mucous membranes pink and moist. NECK: Supple. Trachea midline. CARDIOVASCULAR: Regular rate and rhythm. S1, S2 noted. No murmur appreciated. RESPIRATORY: No accessory muscle use. Clear to auscultation. Breath sounds equal bilaterally. GASTROINTESTINAL: Abdomen soft, non-tender, nondistended. Normoactive bowel sounds x4. MUSCULOSKELETAL: No obvious deformities. Extremities without clubbing, cyanosis , or edema. NEUROLOGICAL: Awake and alert. No obvious cranial nerve deficits. Motor grossly within normal limits. Normal speech. Medications and IVs Current Medications Medications (Trade) Dose Ordered Sig/Joan Route Start Time Stop Time Status Last Admin Sodium Chloride 2 ml 2 ml UNSCH PRN IVF 05/18/17 17:30 (NS 1000 ml Inj) 1,000 ml @ 100 mls/hr Q10H IV 05/18/17 20:02 05/19/17 05:33 (NS Flush) 2 ml UNSCH PRN IV FLUSH 05/18/17 20:15 (NS Flush) 2 ml BID IV FLUSH 05/18/17 21:00 05/19/17 08:35 (Zofran Inj) 4 mg Q6H PRN IVP 05/18/17 20:15 (Ema-Colace) 1 tab BID PO 05/18/17 21:00 (Milk Of Magnesia Liq) 30 ml Q12H PRN PO 05/18/17 20:15 (Senokot) 17.2 mg Q12H PRN PO 05/18/17 20:15 (Dulcolax Supp) 10 mg DAILY PRN RECTAL 05/18/17 20:15 (Lactulose Liq) 30 ml DAILY PRN PO 05/18/17 20:15 (Nitroglycerin 2% Oint) 0.5 inch Q6HR PRN TOPICAL 05/18/17 20:15 (Ativan Inj) 1 mg Q2H PRN IV PUSH 05/18/17 20:15 (Pravachol) 40 mg HS PO 05/18/17 21:00 05/18/17 22:38 (Aspirin Chew) 81 mg DAILY CHEW 05/19/17 09:00 05/19/17 08:35 (SEROquel) 300 mg DAILY PO 05/19/17 09:00 05/19/17 08:35 A/P Problem List: (1) Chest pain ICD Code: R07.9 Status: Acute (2) Non-compliance ICD Code: Z91.19 Status: Acute (3) Dehydration ICD Code: E86.0 Status: Acute (4) Cocaine abuse ICD Code: F14.10 Status: Acute (5) Alcohol abuse ICD Code: F10.10 Status: Acute (6) Leukocytosis ICD Code: D72.829 Status: Acute Assessment and Plan 52-year-old male with a PMH of Bipolar Disorder, HTN, CAD, Alcohol Abuse, Cocaine Abuse, Hepatitis C and Noncompliance was brought to the ER by EMS secondary to chest pain Chest Pain: acute onset of substernal chest pain, h/o CAD, previous admit w/ Nuclear Stress showing reversible defect suggestive of ischemia, was to undergo Cath by Dr. Andrea, however Left AMA. Patient now denying recent cath at any other facility. ACS ruled out with negative serial cardiac enzymes x3 and EKG w/ no acute ischemia. UDS positive for cocaine. NTG/Morphine prn, Ativan prn, ASA, Statin. Hold B-nidia in light of cocaine abuse. Cardiology consulted to consider heart cath if appropriate. Non-Compliance: Pt non-compliant w/ treatment plan and follow up, as above. Stressed importance of compliance. Dehydration: GFR 72, BUN 23, Give IVF for hydration. Repeat labs show improvement. UTI: UA with possible UTI, shows +leuks/bacteria. Start on Cipro 500mg bid. Await urine culture. Cocaine Abuse: UDS positive for cocaine again. Ativan prn. Alcohol Abuse: Denies recent ingestion, Etoh level negative. Monitor for withdrawal. Start thiamine/folate/MV. DVT Prophylaxis: SCD/Teds. Discharge Planning Await cardiology evaluation. Attending Statement The exam, history, and the medical decision-making described in the above note were completed with the assistance of the mid-level provider. I reviewed and agree with the findings presented. I attest that I had a [id number] encounter with the patient on the same day, and personally performed and documented my assessment and findings in the medical record. Problem Qualifiers (1) Chest pain: Qualified Code: R07.9 - Chest pain, unspecified type Lauryn Avilez PA-C May 19, 2017 10:12 Yovani Holt MD May 19, 2017 18:03
[2017-05-19] MEDS: CIPROFLOXACIN 500 MG TAB PO SCH ×2 (13:21→23:25)
[2017-05-19] MEDS ORDERED: CIPR-9 PO (13:26)
--- NOTE | 2017-05-19 13:26 | HHI.DCPOC ---
Discharge Care Plan Diagnosis: (1) Chest pain (2) Cocaine abuse (3) Dehydration Goals to Promote Your Health * To prevent worsening of your condition and complications * To maintain your health at the optimal level Directions to Meet Your Goals Take your medications as prescribed Follow your dietary instruction Follow activity as directed Keep your appointments as scheduled Take your immunizations and boosters as scheduled If your symptoms worsen call your PCP, if no PCP go to Urgent Care Center or Emergency Room Smoking is Dangerous to Your Health. Avoid second hand smoke Call the 24-hour hour crisis hotline for domestic abuse at Lauryn Avilez PA-C May 19, 2017 1:26 pm
--- NOTE | 2017-05-19 18:06 | MB ---
cc: NARAYAN MELISSA M.D. DATE OF CONSULTATION 05/19/2017 HISTORY Laron is a very pleasant 53-year-old gentleman who complains of substernal chest pain described as pressure like with and without exertion, associated with shortness of breath. He had a nuclear stress test in February of 2017 which showed a reversible perfusion defect in the anterior wall, normal ejection fraction. Risk category was intermediate. Size of the reversal defect is not described in the report. Otherwise denies any fevers, chills, cough, GI or bleeding, paroxysmal nocturnal dyspnea, orthopnea, syncope or dizziness. PAST MEDICAL HISTORY Includes: 1. Hepatitis C. 2. Bipolar disorder. SOCIAL HISTORY Denies alcohol use. Does smoke tobacco and uses illicit substances. ALLERGIES ACETAMINOPHEN, VICODIN. MEDICATIONS Prior to admission: 1. Aspirin 81 milligrams daily. 2. Seroquel 100 daily. His medications in the hospital: 1. Folic acid one milligram daily. 2. Thiamine 100 milligrams daily. 3. Multivitamin. 4. Ciprofloxacin 500 q.12h. 5. Aspirin 81 milligrams daily. 6. Seroquel 300 daily. 7. Senna docusate one tablet twice a day. 8. Pravastatin 40 bedtime. PHYSICAL EXAMINATION VITAL SIGNS: Blood pressure 110/73, pulse 67, respiratory rate 20, temperature 97.6. GENERAL: He is alert and oriented times three. In no acute distress. NECK: Supple. No JVD. No bruits. CARDIOVASCULAR: S1-S2. No murmurs, rubs, or gallops. LUNGS: Clear to auscultation bilaterally. ABDOMEN: Soft, nontender. Nondistended. Positive bowel sounds. EXTREMITIES: No lower extremity edema. LABORATORY DATA White count 12.0, hemoglobin 14.8, hematocrit 42.6, platelet count 189. INR is 1.0. Sodium 141, potassium 3.5, chloride 107, bicarbonate 26.8, BUN 28, creatinine 0.86. AST is 183, ALT is 128. Troponin is less than 0.02 times three. Albumin is 2.9. Toxicology screen is positive for cocaine. IMAGING A chest x-ray, no acute disease. EKG normal sinus rhythm at 81 beats per minute. DIAGNOSES He has the following diagnoses: 1. Unstable angina. 2. Citizen Of [place] Cardiovascular Society Class IV angina. 3. Dyspnea. 4. Moderate risk nuclear stress test with reversibility of the anterior wall. 5. Hepatitis C. 6. Bipolar disorder. 7. Cocaine abuse. 8. Tobacco abuse. 9. Elevated white count. 10. Elevated liver enzymes. DISCUSSION At this point in time left heart catheterization is medically necessary due to new onset cardiac symptoms of chest pain at rest, Citizen Of [place] Cardiovascular Society class IV angina, unstable angina, moderate risk nuclear stress test with reversibility in the anterior wall, multiple cardiac risk factors including tobacco abuse, age greater than 45, male gender, otherwise agree with aspirin. Would be cautious with statins and would consider holding given the fact that this liver enzymes are markedly elevated and he has hepatitis C. We will defer this to the ordering physician. Strongly recommend smoking cessation and abstinence from cocaine. Plan for left heart catheterization tomorrow, May 20, 2017. MD NOREEN Ibrahim/KK /5:48 PM /5:55 PM
--- NOTE | 2017-05-19 18:27 | EKG ---
Date Performed: 05/18/2017 Time Performed: 17:37:29 PTAGE: 52 years EKG: Sinus rhythm NORMAL ECG PREVIOUS TRACING : 03/16/2017 23.42 Compared to prior tracing no significant change DOCTOR: Romain Kapadia Interpretating Date/Time 05/19/2017 18:25:30
[2017-05-19] MEDS: PRAVASTATIN SOD 40 MG TAB PO SCH (21:17)
[2017-05-20] VITALS: PULSE 69
[2017-05-20] MEDS: SODIUM CHLOR 0.9% 1000 ML INJ 1,000 ML IV SCH (02:02)
[2017-05-20 04:17] VITALS: BP 107/58; PULSE 58; RESP 18; TEMP 97.1; O2SAT 95
[2017-05-20 04:34] VITALS: PULSE 54
[2017-05-20] MEDS ORDERED: POTASSIUM CHLORIDE 20 MEQ CONTROLLED RELEASE TAB PO ONE (08:00)
[2017-05-20] MEDS: DOCUSATE SODIUM 50 MG/SENNA 8.6 MG TAB PO SCH (08:05)
[2017-05-20] MEDS: QUEtiapine FUMARATE 100 MG TAB PO SCH (08:05)
[2017-05-20] MEDS: ASPIRIN 81 MG CHEW TAB CHEW SCH (08:05)
[2017-05-20] MEDS: SODIUM CHLORIDE 0.9% FLUSH 10 ML FLUSH IV FLUSH SCH (08:05)
[2017-05-20 08:29] VITALS: BP 132/89; PULSE 62; RESP 16; TEMP 98.6; O2SAT 98
[2017-05-20] MEDS ORDERED: FOLIC ACID 1 MG TAB PO SCH (09:00)
[2017-05-20] MEDS ORDERED: MULTIVITAMINS/MINERALS THERAPEUTIC TAB PO SCH (09:00)
[2017-05-20] MEDS ORDERED: THIAMINE HCL 100 MG TAB PO SCH (09:00)
--- NOTE | 2017-05-20 09:27 | HHI.PR ---
Subjective Remarks Follow up for chest pain. The patient reports continued intermittent episodes of left sided chest pain overnight, denies any shortness of breath/nausea/ vomiting/diaphoresis. He agrees to cardiac catheterization today. Objective Vitals Vital Signs Date Time Temp Pulse Resp B/P Pulse Ox O2 Delivery O2 Flow Rate FiO2 05/20/17 08:29 98.6 62 16 132/89 98 05/20/17 04:34 54 05/20/17 04:17 97.1 58 18 107/58 95 05/20/17 00:00 69 05/19/17 23:32 98.0 56 20 112/71 97 05/19/17 20:00 58 05/19/17 19:56 98.1 83 20 134/86 98 05/19/17 15:39 97.6 57 20 110/73 96 05/19/17 14:01 65 05/19/17 11:20 98.0 65 15 121/69 97 05/19/17 11:05 98.0 70 20 114/63 97 I/O 05/19/17 05/19/17 05/19/17 05/20/17 05/20/17 05/20/17 07:00 15:00 23:00 07:00 15:00 23:00 Intake Total 873 ml 240 ml Output Total 650 ml Balance 873 ml 240 ml -650 ml Intake Oral 240 ml IV Total 873 ml Output Urine Total 650 ml # Voids 1 1 Result Diagram: 05/19/17 0450 05/19/17 0450 Other Results Laboratory Tests Test 05/18/17 05/19/17 05/19/17 17:45 04:50 09:00 Prothrombin Time 10.5 SEC Prothromb Time International 1.0 RATIO Ratio Activated Partial 30.0 SEC Thromboplast Time Magnesium Level 2.0 MG/DL Total Creatine Kinase 227 U/L Creatine Kinase MB 7.2 NG/ML White Blood Count 8.4 TH/MM3 Red Blood Count 4.15 MIL/MM3 Hemoglobin 13.8 GM/DL Hematocrit 39.5 % Mean Corpuscular Volume 95.2 FL Mean Corpuscular Hemoglobin 33.2 PG Mean Corpuscular Hemoglobin 34.9 % Concent Red Cell Distribution Width 12.9 % Platelet Count 160 TH/MM3 Mean Platelet Volume 8.2 FL Neutrophils (%) (Auto) 68.0 % Lymphocytes (%) (Auto) 20.4 % Monocytes (%) (Auto) 8.5 % Eosinophils (%) (Auto) 2.1 % Basophils (%) (Auto) 1.0 % Neutrophils # (Auto) 5.7 TH/MM3 Lymphocytes # (Auto) 1.7 TH/MM3 Monocytes # (Auto) 0.7 TH/MM3 Eosinophils # (Auto) 0.2 TH/MM3 Basophils # (Auto) 0.1 TH/MM3 CBC Comment DIFF FINAL Differential Comment Sodium Level 141 MEQ/L Potassium Level 3.5 MEQ/L Chloride Level 107 MEQ/L Carbon Dioxide Level 26.8 MEQ/L Anion Gap 7 MEQ/L Blood Urea Nitrogen 28 MG/DL Creatinine 0.86 MG/DL Estimat Glomerular Filtration 93 ML/MIN Rate Random Glucose 93 MG/DL Calcium Level 7.8 MG/DL Total Bilirubin 0.4 MG/DL Aspartate Amino Transf 183 U/L (AST/SGOT) Alanine Aminotransferase 128 U/L (ALT/SGPT) Alkaline Phosphatase 67 U/L Troponin I 0.02 NG/ML Total Protein 5.8 GM/DL Albumin 2.9 GM/DL Ethyl Alcohol Level LESS THAN 3 MG/DL Urine Color YELLOW Urine Turbidity CLEAR Urine pH 6.0 Urine Specific [place] 1.030 Urine Protein TRACE mg/dL Urine Glucose (UA) 70 mg/dL Urine Ketones NEG mg/dL Urine Occult Blood NEG Urine Nitrite NEG Urine Bilirubin NEG Urine Urobilinogen 2.0 MG/DL Urine Leukocyte Esterase MOD Urine RBC LESS THAN 1 /hpf Urine WBC 24 /hpf Urine Squamous Epithelial <1 /hpf Cells Urine Bacteria OCC /hpf Urine Mucus FEW /lpf Microscopic Urinalysis Comment CULTURE INDICATED Urine Opiates Screen NEG Urine Barbiturates Screen NEG Urine Amphetamines Screen NEG Urine Benzodiazepines Screen NEG Urine Cocaine Screen POS Urine Cannabinoids Screen NEG Imaging Last Impressions Chest X-Ray 05/18/17 0000 Signed Impressions: Service Date/Time: Thursday, May 18, 2017 17:55 - CONCLUSION: No acute disease. Robert Mantilla MD Objective Remarks GENERAL: Well-nourished, well-developed thin male patient in NAD. SKIN: Warm and dry. No rash. HEENT: Normocephalic. Atraumatic. Pupils equal and round. Mucous membranes pink and moist. NECK: Supple. Trachea midline. CARDIOVASCULAR: Regular rate and rhythm. S1, S2 noted. No murmur appreciated. RESPIRATORY: No accessory muscle use. Clear to auscultation. Breath sounds equal bilaterally. GASTROINTESTINAL: Abdomen soft, non-tender, nondistended. Normoactive bowel sounds x4. MUSCULOSKELETAL: No obvious deformities. Extremities without clubbing, cyanosis , or edema. NEUROLOGICAL: Awake and alert. No obvious cranial nerve deficits. Motor grossly within normal limits. Normal speech. Procedures CARDIAC CATHETERIZATION Medications and IVs Current Medications Medications (Trade) Dose Ordered Sig/Joan Route Start Time Stop Time Status Last Admin Sodium Chloride 2 ml 2 ml UNSCH PRN IVF 05/18/17 17:30 (NS 1000 ml Inj) 1,000 ml @ 100 mls/hr Q10H IV 05/18/17 20:02 05/20/17 02:02 (NS Flush) 2 ml UNSCH PRN IV FLUSH 05/18/17 20:15 (NS Flush) 2 ml BID IV FLUSH 05/18/17 21:00 05/19/17 08:35 (Zofran Inj) 4 mg Q6H PRN IVP 05/18/17 20:15 (Ema-Colace) 1 tab BID PO 05/18/17 21:00 05/20/17 08:05 (Milk Of Magnesia Liq) 30 ml Q12H PRN PO 05/18/17 20:15 (Senokot) 17.2 mg Q12H PRN PO 05/18/17 20:15 (Dulcolax Supp) 10 mg DAILY PRN RECTAL 05/18/17 20:15 (Lactulose Liq) 30 ml DAILY PRN PO 05/18/17 20:15 (Nitroglycerin 2% Oint) 0.5 inch Q6HR PRN TOPICAL 05/18/17 20:15 (Ativan Inj) 1 mg Q2H PRN IV PUSH 05/18/17 20:15 (Pravachol) 40 mg HS PO 05/18/17 21:00 05/19/17 21:17 (Aspirin Chew) 81 mg DAILY CHEW 05/19/17 09:00 05/20/17 08:05 (SEROquel) 300 mg DAILY PO 05/19/17 09:00 05/19/17 08:35 (Cipro) 500 mg Q12H PO 05/19/17 11:00 05/19/17 23:25 (Folate) 1 mg DAILY PO 05/20/17 09:00 05/25/17 08:59 05/20/17 08:05 (Vitamin B1) 100 mg DAILY PO 05/20/17 09:00 05/20/17 08:05 (Theragran M Tab) 1 tab DAILY PO 05/20/17 09:00 05/25/17 08:59 05/20/17 08:04 Urinary Catheter: No Vascular Central Line Catheter: No A/P Problem List: (1) Chest pain ICD Code: R07.9 Status: Acute (2) Non-compliance ICD Code: Z91.19 Status: Acute (3) Dehydration ICD Code: E86.0 Status: Acute (4) Cocaine abuse ICD Code: F14.10 Status: Acute (5) Alcohol abuse ICD Code: F10.10 Status: Acute (6) Leukocytosis ICD Code: D72.829 Status: Acute Assessment and Plan 52-year-old male with a PMH of Bipolar Disorder, HTN, CAD, Alcohol Abuse, Cocaine Abuse, Hepatitis C and Noncompliance was brought to the ER by EMS secondary to chest pain Chest Pain: acute onset of substernal chest pain, h/o CAD, previous admit w/ Nuclear Stress showing reversible defect suggestive of ischemia, was to undergo Cath by Dr. Andrea, however Left AMA. Patient now denying recent cath at any other facility. ACS ruled out with negative serial cardiac enzymes x3 and EKG w/ no acute ischemia. UDS positive for cocaine. NTG/Morphine prn, Ativan prn, ASA. Avoid statin with elevated LFTs and lipid panel wnl. Hold B-nidia in light of cocaine abuse. Cardiology consulted, plan for cardiac cath today. Non-Compliance: Pt non-compliant w/ treatment plan and follow up, as above. Stressed importance of compliance. Dehydration: GFR 72, BUN 23, Give IVF for hydration. Repeat labs show improvement. UTI: UA with possible UTI, shows +leuks/bacteria. Start on Cipro 500mg bid. Await urine culture. Cocaine Abuse: UDS positive for cocaine again. Counseled on cessation. Ativan prn. Alcohol Abuse: Denies recent ingestion, Etoh level negative. Monitor for withdrawal. Start thiamine/folate/MV. No signs of withdrawal. Transaminitis: Suspect secondary to hepatitis C and alcohol abuse. Avoid hepatotoxins including statin. Outpatient f/up with GI. DVT Prophylaxis: SCD/Teds. Discharge Planning 0840hrs: Await cardiac catheterization today, further disposition to follow. 1330hrs: Received call from RN. Patient post-cardiac cath, no reported intervention. RN reports Dr. Kapadia cleared the patient for discharge. Will discharge home. Urine culture still pending, will give Rx for Cipro. Discharge patient to home Condition on discharge: Improved Heart Healthy Diet as tolerated Ad Kathy activity Rx written: cipro 500mg bid x7days Follow-up with primary care physician within 1 week Attending Statement The exam, history, and the medical decision-making described in the above note were completed with the assistance of the mid-level provider. I reviewed and agree with the findings presented. I attest that I had a [id number] encounter with the patient on the same day, and personally performed and documented my assessment and findings in the medical record. Problem Qualifiers (1) Chest pain: Qualified Code: R07.9 - Chest pain, unspecified type Lauryn Avilez PA-C May 20, 2017 09:27 Yovani Holt MD May 20, 2017 18:07
[2017-05-20] MEDS: CIPROFLOXACIN 500 MG TAB PO SCH (11:02)
[2017-05-20 11:44] VITALS: BP 117/76; RESP 18; TEMP 97.8; O2SAT 97
[2017-05-20] MEDS ORDERED: HEPARIN-NS/PF INJ 500 ML ONE ×2 (12:25→12:26)
[2017-05-20] MEDS ORDERED: NITROGLYCERIN INJ 5 ML ONE (12:26)
[2017-05-20] MEDS ORDERED: MIDAZOLAM HCL 2 MG/2 ML VIAL ONE (12:37)
[2017-05-20] MEDS ORDERED: HEPARIN SODIUM - IV 10,000 UNITS/10 ML VIAL ONE (12:38)
--- NOTE | 2017-05-20 13:13 | CATHPROC ---
Writer.ly HIS Report Study Information Study Number Admission Scheduled Start Study Start [id number] May 18 2017 7:42PM 05/20/2017 May 20 2017 12:18PM [facility] Service Cardiac Catheterization Admit Source Facility Department Emergency department [facility] - Histology Teacher Physician and Clinical Staff Initial Romain Bell Mining EngineerAlecia Ortiz RN Mining EngineerBrenda Flowers RN Recorder Lucille Burden,RT(R) ScrPrince Hopkins RCIS(BS) Procedures Performed Procedure Location (Site) Vessel Name Coronary Angiograms LCA Left Coronary Coronary Angiograms RCA Right Coronary L Heart Cath Wire insertion Fem Art (right) Femoral Art Equipment Time Life Skills Coordinator Volunteer Description Size Mfg Part Number Used/Scraped TRANSDUCER, TRUWAVE [id number] 12:35 DAVIDSON GARG * Used W/STOCKCOCK *[id number] *[id number] *[id number] 12:35 MEDLINE INDUSTRIES PACK, CCL CUSTOM * Used *[id number] 12:35 Gongpingjia PACER PEN, SKIN DUAL W/ RULER * Used *[id number] 12:35 Fab'entech WIRE, 3MMJ .035 180CM 180CM Used *[id number] 12:35 NAMIC MANIFOLD, 4 PORT * Used *[id number] 12:35 NYCOMED OMNIPAQUE, 350 MG, 150ML 150ML [id number] 12:35 BrainSINS MEDICAL BLANKET,WARM AIR CCL * Used *[id number] 12:35 TERUMO MEDICAL SHEATH, FR4 TERUMO (10CM) FR 4 Used *[id number] History: Current Medications Medication Dosage/Unit Route Frequency Last Date/Time Taken ASA Statins (any) History: Allergies Allergy Reaction Acetaminophen HIVES Vicodin HIVES History: Risk Factors Family History of Hypertension Dyslipidemia Previous IA Previous Heart Failure Premature CAD No No No No No Prior Valve Prior PCI Prior CABG Surgery No No No Cerebrovascular Peripheral Artery Chronic Lung On Dialysis Diabetes Disease Disease Disease No No No No No History: Stress Tests Stress or Imaging Studies Performed Yes Standard Exercise Stress Test No Stress Echo No Stress Test SPECT Stress Test SPECT Result Stress Test SPECT Ischemia Risk/Extent Yes Positive Intermediate Stress Test CMR No Cardiac CTA Coronary Calcium Score No No History: Other Current Smoker Method Yes Cigarettes Labs Hgb (g/dl) Hct (%) RBC (MIL/MM3) WBC (l/cumm) Platelets (thousands) 11.60-17.00 35.00-51.00 4.00-5.90 4.00-11.00 150.00-450.00 13.8 39.5 4.1 8.4 160 Glucose (mg/dl) BUN (mg/dl) Creatinine (mg/dl) BUN:Creatinine (1:x) 74.00-106.00 7.00-18.00 0.50-1.30 10.00-20.00 93 28 0.8 35 Na (meq/l) K (meq/l) Cl (meq/l) CO2 (mmol/L) Ca (mg/dl) 136.00-145.00 3.50-5.10 98.00-107.00 21.00-32.00 8.50-10.10 141 3.5 107 26.8 7.8 PT (sec) PTT (sec) INR (PTT:PT) 9.80-11.60 24.30-30.10 0.90-1.10 10.5 30 1 Troponin I (ng/ml) CPK (u/l) CPK-MB (ng/ML) 0.02-0.05 26.00-308.00 0.50-3.60 0.02 227 7.2 Medication Medication Total Dose (Bolus/Oral) Medication Total Dosage/Unit 1% XYLOCAINE 20 mL FENTANYL 50 mcg Medications (Bolus/Oral) Medication Time Given Dosage/Unit Administered By Reason FENTANYL 05/20/2017 12:47:40 PM 12.5 mcg Brenda Mary 12.5 mcg FENTANYL given in lab by Brenda Mary RN via Peripheral IV. FENTANYL 05/20/2017 12:57:32 PM 25 mcg Alecia Leone 25 mcg FENTANYL given in lab by Alecia Leone RN in Right Antecubital via Peripheral IV. Ordered b y Romain Kapadia. 1% XYLOCAINE 05/20/2017 12:59:41 PM 20 mL Romain Kapadia 20 mL 1% XYLOCAINE given in lab by Romain Kapadia in Right Groin via Subcutaneous. FENTANYL 05/20/2017 1:03:40 PM 12.5 mcg Brenda Mary 12.5 mcg FENTANYL given in lab by Brenda Mary, RAMÍREZ via Peripheral IV. Medication (Drip) Medication Time Given Dosage/Unit Concentration/Unit Diluent (ml) Solutio n IV Solutions 05/20/2017 12:20:22 PM 0 mL (IV) 500 NaCl .9 Patient arrived on IV Solutions in Right Antecubital via Peripheral IV. Pump/Drip Flow = 20 ml/hr usi ng NaCl .9. Initial Case Assessment Cardiovascular HR Rhythm 65 irreg Edema Present Skin color Skin None Normal Warm Circulatory - Right Pulses Dorsalis Pedis Femoral 3 3 Scale (0,1,2,3,4,d) Circulatory - Left Pulses Dorsalis Pedis Femoral 3 3 Scale (0,1,2,3,4,d) Circulatory - Lower Extremities Color Lower Right Color Lower Left Normal Normal Neurological State Oriented to time-place- Alert Moves all extremities person Respiration - General Respiration Rate SpO2 (%) (B/min) 22 99 Final Case Assessment Cardiovascular HR Rhythm NIBP 57 irreg 138/91 Edema Present Skin color Skin None Normal Warm Circulatory - Right Pulses Dorsalis Pedis Femoral 3 3 Scale (0,1,2,3,4,d) Circulatory - Left Pulses Dorsalis Pedis Femoral 3 3 Scale (0,1,2,3,4,d) Circulatory - Lower Extremities Color Lower Right Color Lower Left Normal Normal Neurological State Oriented to time-place- Alert Moves all extremities person Respiration - General Respiration Rate SpO2 (%) (B/min) 9 100 Chronological Log Time Study Chronological Log 12:20:07 Patient arrived via Bed. 12:20:11 Patient Name, D.O.B, / Armband Verified By R.N. 12:20:11 Consent signed by the physician and the patient and verified by the Histology Teacher staff. 12:20:12 Pre-op and post- op instructions given; patient acknowledges understanding of instructions. 12:20:14 Verbal Stimulation=2 Physical Stimulation=2 Airway=2 Respiration=2 TOTAL=8. (0=absent, 1=li mited, 2=present) 12:20:18 Patient has been NPO for More than 6Hrs. 12:20:19 Skin Breakdown-none 12:20:21 A # 18 IV was noted in the Antecubital (right). Grade = 0 12:20:22 Patient arrived on IV Solutions in Right Antecubital via Peripheral IV. Pump/Drip Flow = 20 ml/hr using NaCl .9. 12:20:23 History and physical on the chart or being dictated. Vitals capture started with the following parameters, Patient=Adult, Interval=5 min, Initial Pr irupuu=752 mmHg, 12:25:45 Deflation Rate=5 mmHg 12:26:22 HR=66 bpm, BXUU=835/92 mmhg, SpO2=98.0 %, Resp=11 B/min, Pain=0, Keya=10, Gomez=2 12:26:59 Reference ECG taken 12:31:19 HR=63 bpm, GWFW=248/90 mmhg, SpO2=99.0 %, Resp=10 B/min, Pain=0, Keya=10, Gomez=2 12:36:55 HR=56 bpm, EGRX=324/91 mmhg, SpO2=99.0 %, Resp=12 B/min, Pain=0, Keya=10, Ogmez=2 12:42:04 Pressure channel 1 zeroed. 12:42:51 HR=54 bpm, UBOU=456/84 mmhg, Resp=16 B/min, Pain=0, Keya=10, Gomez=2 12:44:22 paged Assessment: Initial Case, HR=65 BPM, Rhythm=irreg, Edema=None, Color=Normal, Skin = Warm Right Pulses: Geraldo Ped=3, Femoral=3 Left Pulses: Geraldo Ped=3, Femoral=3 12:46:45 Lower Right Extremities: Color=Normal Lower Left Extremities: Color=Normal Neurological: State=Alert, Ox3, CARMONA Respiration: Resp=22 B/min, SpO2=99 % 12:47:09 Vitals capture stopped. Vitals capture started with the following parameters, Patient=Adult, Interval=5 min, Initial Pr tvnpzd=396 mmHg, 12:47:30 Deflation Rate=5 mmHg 12:47:40 12.5 mcg FENTANYL given in lab by Brenda Mary RN via Peripheral IV. 12:48:11 HR=57 bpm, NHXF=704/85 mmhg, Resp=22 B/min, Pain=0, Keya=10, Gomez=2 12:48:17 Bilateral groins prepped with 2% chlorhexidine, and with a 3 min. waiting time. 12:48:31 MD responded 12:53:22 HR=54 bpm, PHEN=174/76 mmhg, CmH3=906.0 %, Resp=17 B/min, Pain=0, Keya=10, Gomez=2 12:54:51 MD arrived. 25 mcg FENTANYL given in lab by lAecia Leone RN in Right Antecubital via Peripheral IV. Ord ered by Steffi, 12:57:32 Romain. Time Out. Correct patient, correct procedure,correct physician, ,power injector not loaded with contrast with surgical 12:58:35 team present. Time Out Concurred by MD, individual staff and ORCHESTRATOR in procedure 12:58:43 HR=63 bpm, LAOB=164/94 mmhg, PyK4=079.0 %, Resp=21 B/min, Pain=0, Keya=10, Gomez=2 12:58:47 Case Start 12:58:52 Verbal Stimulation=2 Physical Stimulation=2 Airway=2 Respiration=2 TOTAL=8. (0=absent, 1=li mited, 2=present) 12:59:41 20 mL 1% XYLOCAINE given in lab by Romain Kapadia in Right Groin via Subcutaneous. 13:00:01 Access site was Right Femoral Artery. 13:00:07 A wire was inserted via Fem Art (right). 13:00:10 A SHEATH, FR4 TERUMO (10CM) FR 4 was advanced into the Fem Art (right) using the Percutaneo us technique. A JR 4.0 INFINITI CATHETER FR 4 was advanced over a wire. OMNIPAQUE, 350 MG, 150ML 150ML was us ed for 13:00:35 injections. Recorded Pressure: LV, HR=64, Condition=Condition 1 13:01:03 (Left Ventricle) LV 140/8/14 Recorded Pressure: LV, Ao, HR=55, Condition=Condition 1 13:01:17 (Left Ventricle) LV 134/9/14, (Aorta) Ao 139/81/105 13:01:35 The RCA was injected and visualized at various angles. OMNIPAQUE, 350 MG, 150ML 150ML used . 13:02:07 Catheter was removed 13:02:10 Catheter was removed A JL 4.0 INFINITI CATHETER FR 4 was advanced over a wire. OMNIPAQUE, 350 MG, 150ML 150ML was us ed for 13:02:54 injections. Recorded Pressure: Ao, HR=77, Condition=Condition 1 13:03:17 (Aorta) Ao 145/94/115 13:03:34 HR=76 bpm, TPTL=721/91 mmhg, SpO2=98.0 %, Resp=10 B/min, Pain=0, Keya=10, Gmoez=2 13:03:35 The LCA was injected and visualized at various angles. OMNIPAQUE, 350 MG, 150ML 150ML used . 13:03:40 12.5 mcg FENTANYL given in lab by Brenda Mary RN via Peripheral IV. 13:04:23 Catheter was removed 13:05:47 Case End Assessment: Final Case, HR=57 BPM, Rhythm=irreg, MASR=368/91 mmhg, Edema=None, Color=Normal, S kin = Warm Right Pulses: Geraldo Ped=3, Femoral=3 Left Pulses: Geraldo Ped=3, Femoral=3 13:05:50 Lower Right Extremities: Color=Normal Lower Left Extremities: Color=Normal Neurological: State=Alert, Ox3, CARMONA Respiration: Resp=9 B/min, MoI7=601 % 13:06:22 Catheter(s) removed without difficulty 13:06:28 Sheath(s) left in place, will be removed in DOC UNIT 13:06:50 Sterile dressing applied to site 13:06:50 No case complications noted. 13:06:54 Cine recording checked. 13:06:58 Bedside Report will be given. 13:07:00 Contrast Scanned 13:07:05 A Left Heart Cath was performed. 13:07:07 [facility] 13[facility]07[facility]11 Clinical correlaton risk stratification. 13:08:46 HR=76 bpm, BBZA=680/93 mmhg, CiJ6=409 %, Resp=9 B/min, Pain=0, Keya=10, Gomez=2 13:12:41 Vitals capture stopped. End Study - Contrast Media Used In Study Contrast Total Opened (mL) Total Used (mL) Total Wasted (mL) Omnipaque 40 40 0 End Study - Maximum Contrast Load Max Contrast Load (mL) 462.5 End Study - Radiation Exposure Fluoro Time (minutes) 1.1 End Study - Patient Disposition Complications Transferred To No Histology Teacher Holding
[2017-05-20] MEDS ORDERED: SODIUM CHLORIDE 0.9% FLUSH 10 ML FLUSH IV FLUSH PRN (13:15)
[2017-05-20] MEDS ORDERED: BACITRACIN OINT 0.9 GM PKT TOP ONE (14:00)
[2017-05-20] MEDS ORDERED: MISC INFORMATION XX ONE (14:00)
[2017-05-20] MEDS ORDERED: IOHEXOL 350 MG/ML 50 ML BTL (for Cath Lab) OTHER ONE (15:05)
[2017-05-20] MEDS ORDERED: SODIUM CHLORIDE 0.9% FLUSH 10 ML FLUSH IV FLUSH SCH (21:00)
--- NOTE | 2017-05-23 07:35 | MA ---
cc: NARAYAN MELISSA M.D. DATE 05/22/2017 PROCEDURE PERFORMED Left heart catheterization, left ventriculography, coronary arteriography. INDICATION 1. Unstable angina. [place] [employer] Class IV angina. 2. Intermediate risk nuclear stress test with reversibility in the anterior wall, not quantitated on the nuclear stress test report. 3. Multiple cardiac risk factors including cocaine use tobacco use, male gender, age greater than 45. PROCEDURE The patient was brought into the Cardiac Catheterization Laboratory, prepped and draped in the usual sterile fashion. 10 cc of 1% lidocaine was used to locally anesthetize the right common femoral artery. A 4-Serbian sheath was placed in the right common femoral artery. 4-Serbian, JL4 and JR4 catheters were used to perform left and right coronary angiography, left ventriculography. FINDINGS LV pressure is 140/12-14. Ejection fraction 60%. The right coronary artery is large and dominant. It has no significant disease angiographically. Would estimated the diameter of the proximal and distal segment at 5-6 mm. The left main coronary artery has no significant disease angiographically. The left circumflex vessel has no significant disease angiographically. The first and second obtuse marginal vessels are small vessels. The first obtuse marginal vessel is probably less than 0.5-mm in diameter. No significant obstructive disease. The second obtuse marginal vessel is 1.5 mm in diameter. No significant obstructive disease. The third obtuse marginal vessel is a medium-sized vessel with no significant obstructive disease. The fourth obtuse marginal vessel comes off the mid-AV groove, has no significant obstructive disease. Remainder of the AV groove left circumflex vessel has no significant disease and gives off a small distal posterolateral artery. There is a medium-sized ramus intermedius vessel which has minimal luminal irregularities up to 5% angiographically in the proximal to mid-segment. The LAD is transapical, also has minimal luminal irregularities in the proximal segment up to 5-10% angiographically. There is only one significant diagonal artery which comes off the [id number] segment of the LAD which is small to medium-sized, no significant disease angiographically. CONCLUSIONS 1. Minimal to mild two-vessel coronary artery disease in a right dominant system as detailed above. 2. Normal LV systolic function, ejection fraction 60%. 3. Strongly advised the patient to discontinue tobacco use, cocaine use and medical management of coronary disease, cardiac risk factor modification. MD NOREEN Ibrahim/BHUPINDER /1:16 PM /7:10 AM
== END 2017-05-20 16:15 | disposition home or self-care (01) ==
LOC: NEPC 17:17 → INTOOBSV 19:42 → NEDA 19:42 → NEPGCP 22:07 → HCIS 05-20 12:50
PROVIDERS: ADMIT Internal Medicine; ATTEND Internal Medicine
DX: R07.9 Chest pain, unspecified (principal); N39.0 Urinary tract infection, site not specified; R74.0 Nonspecific elevation of levels of transaminase and lactic acid dehydrogenase [LDH]; D72.829 Elevated white blood cell count, unspecified; E86.0 Dehydration; I25.110 Atherosclerotic heart disease of native coronary artery with unstable angina pectoris; I10 Essential (primary) hypertension; I25.2 Old myocardial infarction; B19.20 Unspecified viral hepatitis C without hepatic coma; F31.9 Bipolar disorder, unspecified; F14.10 Cocaine abuse, uncomplicated; F10.10 Alcohol abuse, uncomplicated; F17.200 Nicotine dependence, unspecified, uncomplicated; Z79.899 Other long term (current) drug therapy; Z79.82 Long term (current) use of aspirin; Z91.19 Patient's noncompliance with other medical treatment and regimen
CPT/HCPCS: 71010; 80053; 80307; 81001; 82550; 82552; 83735; 84484; 85025; 85610; 85730; 87086; 93005; 93454; 99285; C1769; C1893; G0378; J1644; J2250; J3010; J7030; Q9967

== ENCOUNTER 2017-06-22 18:01 | Emergency (ER) | payer MEDICAID ==
[~2017-06-22] VITALS: Ht 175.3 cm; Wt 75.0 kg
[~2017-06-22 18:01] MED LIST changes: +CIPR-9 PO
[2017-06-22 18:09] VITALS: BP 106/57; PULSE 97; RESP 22; TEMP 98.2; O2SAT 97
[2017-06-22 18:40] VITALS: BP_SYST 105; BP_SYST 110; BP_DIAS 59; BP_DIAS 60; RESP 23; O2SAT 98
[2017-06-22] MEDS ORDERED: ONDANSETRON HCL 4 MG/2 ML VIAL IV PUSH ONE (18:45)
[2017-06-22] MEDS ORDERED: SODIUM CHLORIDE 0.9% FLUSH 10 ML FLUSH IVF PRN (18:45)
[2017-06-22] MEDS ORDERED: MORPHINE SULFATE 4 MG/ML INJ IV PUSH ONE (18:45)
[2017-06-22] MEDS ORDERED: NITROGLYCERIN 0.4 MG SL 25 TABS/BTL SL ONE (18:45)
--- NOTE | 2017-06-22 18:45 | PD ---
HPI Chief Complaint: Chest Pain Time Seen by Provider: 18:23 Travel History International Travel<30 days: No Contact w/Intl Traveler<30days: No Traveled to known affect area: No History of Present Illness HPI 52-year-old male that presents to the ED for evaluation of chest pain. Patient came here by ambulance for evaluation of this. Per patient has the chest pressure since yesterday. Patient has a history shortness of breath. He reports that he's been having this on and off for about 30 years now. He states that about 3 months ago he had a heart cath which was essentially unremarkable and he believes that there is something else going on. He still believes that this is heart related. Of note patient has a chronic history of alcohol abuse and substance abuse including cocaine. Per patient he last used about 2 days ago. He states that the pain is severe and it out of 10. Patient was given nitroglycerin and aspirin by ambulance. Initial EKG did not show any sign of acute disease. Per review the patient's medical records and he actually had a heart catheter by us in late April which was essentially unremarkable. Patient has been told multiple times to be compliant with his medications and stop using drugs as well as smoking and he appears to still be noncompliant. PFSH Past Medical History Hx Anticoagulant Therapy: Yes (ASPIRIN 81 DAILY ) Arthritis: No Asthma: No Autoimmune Disease: No Blood Disorders: No Bipolar Disorder: Yes Anxiety: No Depression: No Heart Rhythm Problems: No Cancer: No Cardiac Catheterization: Yes (X2) Cardiovascular Problems: Yes ([place] X2, CATH X2) High Cholesterol: Yes Chemotherapy: No Chest Pain: Yes Congestive Heart Failure: No COPD: No Cerebrovascular Accident: No Diabetes: No Diminished Hearing: No Endocrine: No Gastrointestinal Disorders: No GERD: No Glaucoma: No Genitourinary: No Headaches: No Hepatitis: Yes (HEP C) Hiatal Hernia: No Heparin Induced Thrombocytopen: No Hypertension: No Immune Disorder: No Implanted Vascular Access Dvce: No Kidney Stones: No Musculoskeletal: No Neurologic: No Psychiatric: No Reproductive: No Respiratory: No Immunizations Current: Yes Migraines: No Myocardial Infarction: Yes Radiation Therapy: No Renal Failure: No Seizures: No Sickle Cell Disease: No Sleep Apnea: No Thyroid Disease: No Ulcer: No Past Surgical History Abdominal Surgery: No AICD: No Appendectomy: No Arteriovenous Shunt: No Cardiac Surgery: No Cholecystectomy: No Coronary Artery Bypass Graft: No Ear Surgery: No Endocrine Surgery: No Eye Surgery: No Genitourinary Surgery: No Gynecologic Surgery: No Insulin Pump: No Joint Replacement: No Neurologic Surgery: Yes (L4-5) Oral Surgery: No Pacemaker: No Thoracic Surgery: No Other Surgery: Yes (Back) Family History Family Myocardial Infarction: Yes (MOM) Social History Alcohol Use: No Tobacco Use: Yes (1 PPD) Substance Use: Yes (Cocaine) Allergies-Medications (Allergen,Severity, Reaction): Coded Allergies: acetaminophen (Unverified Allergy, Severe, HIVES, 06/22/17) hydrocodone (Unverified Allergy, Severe, HIVES, 06/22/17) Reported Meds & Prescriptions Reported Meds & Active Scripts Active Reported Aspirin Low Dose (Aspirin) 81 Mg Chew 81 Mg CHEW DAILY Seroquel (Quetiapine Fumarate) 100 Mg Tab 300 Mg PO DAILY Review of Systems Except as stated in HPI: all other systems reviewed are Neg Physical Exam Narrative GENERAL: SKIN: Warm and dry. HEAD: Atraumatic. Normocephalic. EYES: Pupils equal and round. No scleral icterus. No injection or drainage. ENT: No nasal bleeding or discharge. Mucous membranes pink and moist. Tongue is midline. No uvula deviation. NECK: Trachea midline. No JVD. CARDIOVASCULAR: Regular rate and rhythm. No murmurs, S3, S4. RESPIRATORY: No accessory muscle use. Clear to auscultation. Breath sounds equal bilaterally. GASTROINTESTINAL: Abdomen soft, non-tender, nondistended. Hepatic and splenic margins not palpable. MUSCULOSKELETAL: Extremities without clubbing, cyanosis, or edema. No obvious deformities. Full range of motion of the upper and lower extremities bilaterally. 2+ pulses bilaterally. NEUROLOGICAL: Awake and alert. No obvious cranial nerve deficits. Motor grossly within normal limits. Five out of 5 muscle strength in the arms and legs. Normal speech. PSYCHIATRIC: Appropriate mood and affect; insight and judgment normal. Data Data Last Documented VS Vital Signs Date Time Temp Pulse Resp B/P (MAP) Pulse Ox O2 Delivery O2 Flow Rate FiO2 06/22/17 19:26 71 20 106/67 (80) 98 Nasal Cannula 2.00 06/22/17 18:09 98.2 Orders Orders Electrocardiogram (06/22/17 18:31) Basic Metabolic Panel (Bmp) (06/22/17 18:31) Ckmb (Isoenzyme) Profile (06/22/17 18:31) Complete Blood Count With Diff (06/22/17 18:31) D-Dimer (06/22/17 18:31) Magnesium (Mg) (06/22/17 18:31) Prothrombin Time / Inr (Pt) (06/22/17 18:31) Act Partial Throm Time (Ptt) (06/22/17 18:31) Troponin I (06/22/17 18:31) Lipase (06/22/17 18:31) Chest, Single Ap (06/22/17 18:31) Ecg Monitoring (06/22/17 18:31) Bilateral Bp Monitoring (06/22/17 18:31) Iv Access Insert/Monitor (06/22/17 18:31) Oximetry (06/22/17 18:31) Oxygen Administration (06/22/17 18:31) Sodium Chloride 0.9% Flush (Ns Flush) (06/22/17 18:45) Drug Screen, Random Urine (06/22/17 18:33) Alcohol (Ethanol) (06/22/17 18:30) Nitroglycerin Sl (Nitrostat Sl) (06/22/17 18:45) Morphine Inj (Morphine Inj) (06/22/17 18:45) Ondansetron Inj (Zofran Inj) (06/22/17 18:45) CKMB (06/22/17 18:30) CKMB% (06/22/17 18:30) Psych Screen (06/22/17 20:12) ^ Sitter (06/22/17 21:02) Labs Laboratory Tests Test 06/22/17 18:30 White Blood Count 11.2 TH/MM3 Red Blood Count 4.82 MIL/MM3 Hemoglobin 15.5 GM/DL Hematocrit 46.9 % Mean Corpuscular Volume 97.4 FL Mean Corpuscular Hemoglobin 32.3 PG Mean Corpuscular Hemoglobin Concent 33.1 % Red Cell Distribution Width 13.8 % Platelet Count 247 TH/MM3 Mean Platelet Volume 7.6 FL Neutrophils (%) (Auto) 69.3 % Lymphocytes (%) (Auto) 22.8 % Monocytes (%) (Auto) 6.1 % Eosinophils (%) (Auto) 0.7 % Basophils (%) (Auto) 1.1 % Neutrophils # (Auto) 7.8 TH/MM3 Lymphocytes # (Auto) 2.6 TH/MM3 Monocytes # (Auto) 0.7 TH/MM3 Eosinophils # (Auto) 0.1 TH/MM3 Basophils # (Auto) 0.1 TH/MM3 CBC Comment DIFF FINAL Differential Comment Prothrombin Time 10.6 SEC Prothromb Time International Ratio 1.0 RATIO Activated Partial Thromboplast Time 27.1 SEC D-Dimer Quantitative (PE/DVT) 0.23 MG/L FEU Blood Urea Nitrogen 12 MG/DL Creatinine 0.87 MG/DL Random Glucose 104 MG/DL Calcium Level 8.3 MG/DL Magnesium Level 2.3 MG/DL Sodium Level 140 MEQ/L Potassium Level 3.6 MEQ/L Chloride Level 108 MEQ/L Carbon Dioxide Level 23.2 MEQ/L Anion Gap 9 MEQ/L Estimat Glomerular Filtration Rate 92 ML/MIN Total Creatine Kinase 276 U/L Creatine Kinase MB 5.5 NG/ML Troponin I LESS THAN 0.02 NG/ML Lipase 276 U/L Ethyl Alcohol Level 128 MG/DL [facility] Medical Decision Making Medical Screen Exam Complete: Yes Emergency Medical Condition: Yes Medical Record Reviewed: Yes Interpretation(s) EKG shows sinus rhythm with no sign of acute ischemia or arrhythmia. Read by me and attending. CBC & BMP Diagram 06/22/17 18:30 Calcium Level 8.3 L, Magnesium Level 2.3 troponin and CKMG negative tox shows alcohol int he 100s Last Impressions Chest X-Ray 06/22/17 1831 Signed Impressions: Service Date/Time: Saturday, June 22, 2017 19:27 - CONCLUSION: No acute disease. Laron Calderón MD Differential Diagnosis Chest pain versus atypical chest pain versus malingering versus ACS versus cocaine abuse Narrative Course 52-year-old male that presents to the ED for evaluation of chest pain. Patient was properly examined and was found to have signs and symptoms consistent with appears to be chest pain. Patient does have a history of substance abuse versus possibly likely the cause of his symptoms. He just had a heart cath Less than a month ago which was negative. Patient continues to smoke and use cocaine. He does tell me that he has a strong family history of heart disease. Labs and imaging were ordered. Patient was given another nitroglycerin here. Labs and imaging showed no sign of acute disease. Unclear etiology of the pain but this does appear to be cardiac. Likely secondary to his substance abuse as well as alcohol abuse. Patient was positive for alcohol. Tox screen still pending. I had my attending Dr. Haines evaluated the patient with me and when he evaluated the patient he told my attending that he will slice his wrists if he goes home. He recommends Amos act. On regards to chest pain this does not appear to be cardiac in nature at this time. He just had a normal cath and his troponin and EKG show no changes. Dr Haines signed a Amos act. Patient will have psychiatric evaluation now. Patient is medically clear. Mental health screening was discussed with the patient. Diagnosis Primary Impression: Suicidal ideation Additional Impressions: Alcohol intoxication Qualified Codes: F10.920 - Alcohol use, unspecified with intoxication, uncomplicated Atypical chest pain Amrik Arndt Jun 22, 2017 18:45
[2017-06-22 18:58] LABS: AUTOMATED NEUTROPHIL # 7.8 TH/MM3 (1.8-7.7); BASOPHIL # 0.1 TH/MM3 (0-0.2); BASOPHIL % 1.1 % (0.0-2.0); EOSINOPHIL # 0.1 TH/MM3 (0-0.4); EOSINOPHIL % 0.7 % (0.0-4.0); HEMATOCRIT 46.9 % (39.0-51.0); HEMO FLAGS DIFF FINAL; LYMPH % 22.8 % (9.0-44.0); LYMPHOCYTE # 2.6 TH/MM3 (1.0-4.8); MEAN CELL VOLUME 97.4 FL (80.0-100.0); MEAN CORPUSCULAR HEMOGLOBIN 32.3 PG (27.0-34.0); MEAN CORPUSCULAR HGB CONC 33.1 % (32.0-36.0); MONO % 6.1 % (0.0-8.0); NEUT % 69.3 % (16.0-70.0); PLATELET COUNT 247 TH/MM3 (150-450); RED BLOOD COUNT 4.82 MIL/MM3 (4.50-5.90); RED CELL DISTRIBUTION WIDTH 13.8 % (11.6-17.2); WHITE BLOOD COUNT 11.2 TH/MM3 (4.0-11.0)
[2017-06-22 19:11] LABS: ANION GAP 9 MEQ/L (5-15); BICARBONATE 23.2 MEQ/L (21.0-32.0); BLOOD UREA NITROGEN 12 MG/DL (7-18); CHLORIDE 108 MEQ/L (98-107); GLOMERULAR FILTRATION RATE 92 ML/MIN (>89); MAGNESIUM 2.3 MG/DL (1.5-2.5); POTASSIUM 3.6 MEQ/L (3.5-5.1); SODIUM (NA) 140 MEQ/L (136-145)
[2017-06-22 19:12] LABS: APTT (PATIENT) 27.1 SEC (24.3-30.1); PROTHROMBIN TIME - PATIENT 10.6 SEC (9.8-11.6)
[2017-06-22 19:16] LABS: CREATINE KINASE 276 U/L (39-308)
[2017-06-22 19:18] LABS: ALCOHOL 128 MG/DL (0-5)
[2017-06-22 19:26] VITALS: BP 106/67; PULSE 71; RESP 20; O2SAT 98
[2017-06-22 19:30] LABS: CKMB 5.5 NG/ML (0.5-3.6)
--- NOTE | 2017-06-22 19:53 | RADRPT ---
EXAM DATE/TIME: 06/22/2017 19:27 [facility] COMPARISON: CHEST SINGLE AP, May 18, 2017, 17:55. INDICATIONS : Chest Pain MEDICAL HISTORY : Cardiovascular disease. SURGICAL HISTORY : None. ENCOUNTER: Initial ACUITY: 1 day PAIN SCORE: 7/10 LOCATION: Bilateral chest FINDINGS: A single view of the chest demonstrates the lungs to be symmetrically aerated without evidence of mas s, infiltrate or effusion. The cardiomediastinal contours are unremarkable. Osseous structures are intact. CONCLUSION: No acute disease. Laron Calderón MD on June 22, 2017 at 19:51 Board Certified Radiologist. This report was verified electronically.
--- NOTE | 2017-06-22 20:08 | PD ---
Physical Exam Narrative Patient was seen and examined with my operations administrative assistant. Data Data Last Documented VS Vital Signs Date Time Temp Pulse Resp B/P (MAP) Pulse Ox O2 Delivery O2 Flow Rate FiO2 06/22/17 19:26 71 20 106/67 (80) 98 Nasal Cannula 2.00 06/22/17 18:09 98.2 Orders Orders Electrocardiogram (06/22/17 18:31) Basic Metabolic Panel (Bmp) (06/22/17 18:31) Ckmb (Isoenzyme) Profile (06/22/17 18:31) Complete Blood Count With Diff (06/22/17 18:31) D-Dimer (06/22/17 18:31) Magnesium (Mg) (06/22/17 18:31) Prothrombin Time / Inr (Pt) (06/22/17 18:31) Act Partial Throm Time (Ptt) (06/22/17 18:31) Troponin I (06/22/17 18:31) Lipase (06/22/17 18:31) Chest, Single Ap (06/22/17 18:31) Ecg Monitoring (06/22/17 18:31) Bilateral Bp Monitoring (06/22/17 18:31) Iv Access Insert/Monitor (06/22/17 18:31) Oximetry (06/22/17 18:31) Oxygen Administration (06/22/17 18:31) Sodium Chloride 0.9% Flush (Ns Flush) (06/22/17 18:45) Drug Screen, Random Urine (06/22/17 18:33) Alcohol (Ethanol) (06/22/17 18:30) Nitroglycerin Sl (Nitrostat Sl) (06/22/17 18:45) Morphine Inj (Morphine Inj) (06/22/17 18:45) Ondansetron Inj (Zofran Inj) (06/22/17 18:45) CKMB (06/22/17 18:30) CKMB% (06/22/17 18:30) Labs Laboratory Tests Test 06/22/17 18:30 White Blood Count 11.2 TH/MM3 Red Blood Count 4.82 MIL/MM3 Hemoglobin 15.5 GM/DL Hematocrit 46.9 % Mean Corpuscular Volume 97.4 FL Mean Corpuscular Hemoglobin 32.3 PG Mean Corpuscular Hemoglobin Concent 33.1 % Red Cell Distribution Width 13.8 % Platelet Count 247 TH/MM3 Mean Platelet Volume 7.6 FL Neutrophils (%) (Auto) 69.3 % Lymphocytes (%) (Auto) 22.8 % Monocytes (%) (Auto) 6.1 % Eosinophils (%) (Auto) 0.7 % Basophils (%) (Auto) 1.1 % Neutrophils # (Auto) 7.8 TH/MM3 Lymphocytes # (Auto) 2.6 TH/MM3 Monocytes # (Auto) 0.7 TH/MM3 Eosinophils # (Auto) 0.1 TH/MM3 Basophils # (Auto) 0.1 TH/MM3 CBC Comment DIFF FINAL Differential Comment Prothrombin Time 10.6 SEC Prothromb Time International Ratio 1.0 RATIO Activated Partial Thromboplast Time 27.1 SEC D-Dimer Quantitative (PE/DVT) 0.23 MG/L FEU Blood Urea Nitrogen 12 MG/DL Creatinine 0.87 MG/DL Random Glucose 104 MG/DL Calcium Level 8.3 MG/DL Magnesium Level 2.3 MG/DL Sodium Level 140 MEQ/L Potassium Level 3.6 MEQ/L Chloride Level 108 MEQ/L Carbon Dioxide Level 23.2 MEQ/L Anion Gap 9 MEQ/L Estimat Glomerular Filtration Rate 92 ML/MIN Total Creatine Kinase 276 U/L Creatine Kinase MB 5.5 NG/ML Troponin I LESS THAN 0.02 NG/ML Lipase 276 U/L Ethyl Alcohol Level 128 MG/DL MDM Supervised Visit with CAROLINE: Yes Narrative Course Patient was seen and examined with her my system. Patient was given results of chest x-ray blood tests. Patient states that the something wrong with him that he would slit his wrist because of the pain. Patient will be Amos acted and psychiatric consult. Clifton Haines MD Jun 22, 2017 20:08
--- NOTE | 2017-06-22 22:18 | EKG ---
Date Performed: 06/22/2017 Time Performed: 18:11:07 PTAGE: 52 years EKG: Sinus rhythm WITH SHORT WA INTERVAL POSSIBLE LEFT ATRIAL ENLARGEMENT NONSPECIFIC T-WAVE ABNORMALITY BORDERLINE EC G PREVIOUS TRACING : 05/18/2017 17.37 Compared to prior tracing no significant change DOCTOR: Karina Rodríguez Interpretating Date/Time 06/22/2017 22:16:38
[2017-06-23 01:11] LABS: INDIRECT BILIRUBIN 0.3 MG/DL (0.0-0.8); TOTAL BILIRUBIN ADULT 0.4 MG/DL (0.2-1.0)
[2017-06-23 06:00] VITALS: BP 127/59; PULSE 72; RESP 16; O2SAT 96
[2017-06-23 07:04] VITALS: BP 122/65; PULSE 74; RESP 16; O2SAT 99
[2017-06-23 14:25] VITALS: BP 111/69; PULSE 61; RESP 14; O2SAT 98
--- NOTE | 2017-06-23 15:00 | PD ---
History of Present Illness Chief Complaint: Chest Pain Time Seen by Provider: 14:30 Travel History International Travel<30 Days: No Contact w/Intl Traveler<30days: No Known affected area: No Legal Status Legal Status: Amos Act Amos Act Signed By: GENNA HONG History of Present Illness: 52-year-old male with complaints of chest pain and recent cocaine use. Noncompliant with previous medical and medication instructions. Amos acted for suicidal threats. Currently, the patient denies being suicidal and states he said the wrong thing. He in fact denies suicidal and homicidal ideation, plan or intent. He demonstrates no psychotic symptoms and his cognition is intact. He is verbally tommie for safety and he is competent to do so. PFSH Past Medical History Hx Anticoagulant Therapy: Yes (ASPIRIN 81 DAILY ) Arthritis: No Asthma: No Autoimmune Disease: No Blood Disorders: No Bipolar Disorder: Yes Anxiety: No Depression: No Heart Rhythm Problems: No Cancer: No Cardiac Catheterization: Yes (X2) Cardiovascular Problems: Yes ([place] X2, CATH X2) High Cholesterol: Yes Chemotherapy: No Chest Pain: Yes Congestive Heart Failure: No COPD: No Cerebrovascular Accident: No Diabetes: No Diminished Hearing: No Endocrine: No Gastrointestinal Disorders: No GERD: No Glaucoma: No Genitourinary: No Headaches: No Hepatitis: Yes (HEP C) Hiatal Hernia: No Heparin Induced Thrombocytopen: No Hypertension: No Immune Disorder: No Implanted Vascular Access Dvce: No Kidney Stones: No Musculoskeletal: No Neurologic: No Psychiatric: No Reproductive: No Respiratory: No Immunizations Current: Yes Migraines: No Myocardial Infarction: Yes Radiation Therapy: No Renal Failure: No Seizures: No Sickle Cell Disease: No Sleep Apnea: No Thyroid Disease: No Ulcer: No Past Surgical History Abdominal Surgery: No AICD: No Appendectomy: No Arteriovenous Shunt: No Cardiac Surgery: No Cholecystectomy: No Coronary Artery Bypass Graft: No Ear Surgery: No Endocrine Surgery: No Eye Surgery: No Genitourinary Surgery: No Gynecologic Surgery: No Insulin Pump: No Joint Replacement: No Neurologic Surgery: Yes (L4-5) Oral Surgery: No Pacemaker: No Thoracic Surgery: No Other Surgery: Yes (Back) Psychiatric History Psychiatric History Hx Psychiatric Treatment: Unknow, per pt. Pt. does take seroquel He is vague regarding last hosp History of Inpatient Treatment: Yes Guns or firearms in home: No Social History Hx Alcohol Use: No Hx Tobacco Use: Yes (1 PPD) Hx Substance Use: Yes Substance Use Type: Alcohol, Cocaine Other Substances Used: PATIENT REPORTS ETOH, AND COCAINE USE. Hx of Substance Use Treatment: Yes Allergies-Medications (Allergen,Severity, Reaction): Coded Allergies: acetaminophen (Unverified Allergy, Severe, HIVES, 06/22/17) hydrocodone (Unverified Allergy, Severe, HIVES, 06/22/17) Reported Meds & Prescriptions Reported Meds & Active Scripts Active Reported Aspirin Low Dose (Aspirin) 81 Mg Chew 81 Mg CHEW DAILY Seroquel (Quetiapine Fumarate) 100 Mg Tab 300 Mg PO DAILY Review of Systems Except as stated in HPI: all other systems reviewed are Neg Exam Alert: Yes [place]: Person, Place, Date, Situation Mood: Calm Affect: Appropriate Speech: Clear, Logical Eye Contact: Indirect Memory Intact: Immediate, Recent, Remote Insight/Judgement Adequate MDM Medical Decision Making Medical Record Reviewed: Yes Assessment/Plan 52-year-old male with history of chest pain and Amos act for suicidal threats. Patient now denies being suicidal and states he made a mistake when he made this threat earlier. He is verbally tommie for safety and he is competent to do so. Medical record was reviewed and case was discussed with patient's nurse. He does not meet criteria for Amos act or involuntary psychiatric hospitalization. Orders Orders Electrocardiogram (06/22/17 18:31) Basic Metabolic Panel (Bmp) (06/22/17 18:31) Ckmb (Isoenzyme) Profile (06/22/17 18:31) Complete Blood Count With Diff (06/22/17 18:31) D-Dimer (06/22/17 18:31) Magnesium (Mg) (06/22/17 18:31) Prothrombin Time / Inr (Pt) (06/22/17 18:31) Act Partial Throm Time (Ptt) (06/22/17 18:31) Troponin I (06/22/17 18:31) Lipase (06/22/17 18:31) Chest, Single Ap (06/22/17 18:31) Ecg Monitoring (06/22/17 18:31) Bilateral Bp Monitoring (06/22/17 18:31) Iv Access Insert/Monitor (06/22/17 18:31) Oximetry (06/22/17 18:31) Oxygen Administration (06/22/17 18:31) Sodium Chloride 0.9% Flush (Ns Flush) (06/22/17 18:45) Drug Screen, Random Urine (06/22/17 18:33) Alcohol (Ethanol) (06/22/17 18:30) Nitroglycerin Sl (Nitrostat Sl) (06/22/17 18:45) Morphine Inj (Morphine Inj) (06/22/17 18:45) Ondansetron Inj (Zofran Inj) (06/22/17 18:45) CKMB (06/22/17 18:30) CKMB% (06/22/17 18:30) Psych Screen (06/22/17 20:12) ^ Sitter (06/22/17 21:02) Hepatic Functional Panel (06/22/17 21:52) Diet Regular Basic (06/23/17 Breakfast) Results Vital Signs Date Time Temp Pulse Resp B/P (MAP) Pulse Ox O2 Delivery O2 Flow Rate FiO2 06/23/17 14:25 61 14 111/69 (83) 98 06/23/17 07:04 74 16 122/65 (84) 99 Room Air 06/23/17 06:00 72 16 127/59 (81) 96 Room Air 06/22/17 19:26 71 20 106/67 (80) 98 Nasal Cannula 2.00 06/22/17 18:40 98 Nasal Cannula 2.00 06/22/17 18:40 23 98 Nasal Cannula 2.00 06/22/17 18:40 110/59 (76) 105/60 (75) 06/22/17 18:09 98.2 97 22 106/57 (73) 97 Laboratory Tests Test 06/22/17 18:30 White Blood Count 11.2 Red Blood Count 4.82 Hemoglobin 15.5 Hematocrit 46.9 Mean Corpuscular Volume 97.4 Mean Corpuscular Hemoglobin 32.3 Mean Corpuscular Hemoglobin Concent 33.1 Red Cell Distribution Width 13.8 Platelet Count 247 Mean Platelet Volume 7.6 Neutrophils (%) (Auto) 69.3 Lymphocytes (%) (Auto) 22.8 Monocytes (%) (Auto) 6.1 Eosinophils (%) (Auto) 0.7 Basophils (%) (Auto) 1.1 Neutrophils # (Auto) 7.8 Lymphocytes # (Auto) 2.6 Monocytes # (Auto) 0.7 Eosinophils # (Auto) 0.1 Basophils # (Auto) 0.1 CBC Comment DIFF FINAL Differential Comment Prothrombin Time 10.6 Prothromb Time International Ratio 1.0 Activated Partial Thromboplast Time 27.1 D-Dimer Quantitative (PE/DVT) 0.23 Blood Urea Nitrogen 12 Creatinine 0.87 Random Glucose 104 Calcium Level 8.3 Magnesium Level 2.3 Sodium Level 140 Potassium Level 3.6 Chloride Level 108 Carbon Dioxide Level 23.2 Anion Gap 9 Estimat Glomerular Filtration Rate 92 Total Bilirubin 0.4 Direct Bilirubin 0.1 Indirect Bilirubin 0.3 Aspartate Amino Transf (AST/SGOT) 45 Alanine Aminotransferase (ALT/SGPT) 64 Alkaline Phosphatase 71 Total Creatine Kinase 276 Creatine Kinase MB 5.5 Troponin I LESS THAN 0.02 Total Protein 7.4 Albumin 3.8 Lipase 276 Ethyl Alcohol Level 128 Diagnosis Primary Impression: Adjustment disorder with mixed disturbance of emotions and conduct Additional Impression: Cocaine abuse Problem Qualifiers Luoie Palacio MD Jun 23, 2017 14:59
== END 2017-06-23 15:49 | disposition home or self-care (01) ==
LOC: NEPE 18:01
DX: F43.25 Adjustment disorder with mixed disturbance of emotions and conduct (principal); F31.9 Bipolar disorder, unspecified; F14.10 Cocaine abuse, uncomplicated; F17.210 Nicotine dependence, cigarettes, uncomplicated; F10.129 Alcohol abuse with intoxication, unspecified; Y90.6 Blood alcohol level of 120-199 mg/100 ml; Z79.899 Other long term (current) drug therapy
CPT/HCPCS: 71010; 80048; 80076; 80307; 82550; 82552; 83690; 83735; 84484; 85025; 85379; 85610; 85730; 93005; 96374; 96375; 99285; J2270; J2405